=== PATIENT | male | born 1960 | race Two or more races ===

== ENCOUNTER 2018-05-15 09:16 | Inpatient (IN) | payer SELFPAY ==
[~2018-05-15] VITALS: Ht 165.1 cm; Wt 71.8 kg
[2018-05-15 09:40] LABS: BASO # 0.1 x10^3/uL (0.0-0.2); BASO % 1 % (0-3); EOS % 0 % (0-3); HEMATOCRIT 42.7 % (39.0-53.0); HEMOGLOBIN 14.3 g/dL (13.0-17.5); LYMPH # 1.4 x10^3/uL (1.0-4.8); LYMPH % 16 % (24-48); MEAN CORPUSCULAR HEMOGLOBIN 31 pg (25-35); MEAN CORPUSCULAR HGB CONC 34 g/dL (31-37); MEAN CORPUSCULAR VOLUME 91 fL (79-100); MONO # 0.4 x10^3/uL (0.0-1.1); MONO % 4 % (0-9); NEUT % 79 % (31-73); PLATELET COUNT 341 x10^3/uL (140-400); RED BLOOD COUNT 4.68 x10^6/uL (4.30-5.70); RED CELL DISTRIBUTION WIDTH 13.5 % (11.5-14.5); WHITE BLOOD COUNT 8.9 x10^3/uL (4.0-11.0)
[2018-05-15] MEDS: NITROGLYCERIN SUBLINGUAL 0.4 MG BOTTLE OF 25. SL PRN (09:41)
[2018-05-15] MEDS ORDERED: ASPIRIN CHEWABLE 81 MG TABLET. PO ONE (09:45)
[2018-05-15 09:51] LABS: CALCIUM 8.6 mg/dL (8.5-10.1); GFR 77.3; POTASSIUM 3.9 mmol/L (3.5-5.1)
--- NOTE | 2018-05-15 09:51 | PHYS DOC ---
Past Medical History Past Medical History: No Pertinent History Past Surgical History: No Surgical History Additional Information: 1/2 PACK/DAY Alcohol Use: Occasionally Additional Information: SOCIAL DRINKER Drug Use: None Adult General Chief Complaint Chief Complaint: CHEST PAIN HPI HPI Patient is a 58 year old male who presents to the ER for evaluation chest pain. Patient reports acute onset of diffuse chest pressure to anterior chest wall with radiation to bilateral upper extremity while walking to his car. Pain is constant, pressure, 8-10 out of 10, no aggravating or alleviating factors, no previous episodes. Pain is currently 8. No shortness breath, nausea, vomiting. Patient states that he has some chronic low back pain with radiation to left leg and had a friend from [place] do an injection of an unknown medication yesterday. +tobacco, Does not follow with PCP. Unsure if he has history of HTN. Review of Systems Review of Systems Constitutional: Denies fever or chills [] Eyes: Denies change in visual acuity, redness, or eye pain [] HENT: Denies nasal congestion or sore throat [] Respiratory: Denies cough or shortness of breath [] Cardiovascular: Chset pain present, no orthopnea, no palpitations. GI: Denies abdominal pain, nausea, vomiting, bloody stools or diarrhea [] : Denies dysuria or hematuria [] Musculoskeletal: Denies back pain or joint pain [] Integument: Denies rash or skin lesions [] Neurologic: Denies headache, focal weakness or sensory changes [] Endocrine: Denies polyuria or polydipsia [] All other systems were reviewed and found to be within normal limits, except as documented in this note. Current Medications Current Medications Current Medications Medications (Trade) Dose Ordered Sig/Stu Start Time Stop Time Status Last Admin Dose Admin Aspirin (Children'S Aspirin) 324 mg 1X ONCE 05/15/18 09:45 05/15/18 09:46 DC 05/15/18 09:40 324 MG Heparin Sodium (Porcine) (Heparin Sodium) 1,750 unit PRN Q6HRS PRN 05/15/18 10:45 Heparin Sodium/ Dextrose 500 ml @ 0 mls/hr CONT PRN 05/15/18 10:45 Morphine Sulfate (Morphine Sulfate) 4 mg 1X ONCE 05/15/18 10:45 05/15/18 10:46 DC 05/15/18 10:40 4 MG Multi-Ingredient Mouthwash/Gargle (Gi Cocktail) 20 ml 1X ONCE 05/15/18 11:15 05/15/18 11:16 05/15/18 11:13 20 ML Nitroglycerin (Nitrostat) 0.4 mg PRN Q5MIN PRN 05/15/18 09:45 05/15/18 09:41 0.4 MG Allergies Allergies Allergies Coded Allergies Type Severity Reaction Last Updated Verified No Known Drug Allergies 05/15/18 No Physical Exam Physical Exam Constitutional: Well developed, well nourished, no acute distress, mild distress HENT: Normocephalic, atraumatic, Eyes: PERRLA, EOMI, Neck: Normal range of motion, no tenderness, supple, no stridor. [] Cardiovascular:Heart rate regular rhythm, no murmur [] Lungs & Thorax: Bilateral breath sounds clear to auscultation [] Abdomen: Bowel sounds normal, soft, no tenderness, no masses, no pulsatile masses. [] Skin: Warm, dry, no erythema, no rash. [] Back: No tenderness, no CVA tenderness. [] Extremities: No tenderness, no cyanosis, no clubbing, ROM intact, no edema. [] Neurologic: Alert and oriented X 3, no focal deficits noted. [] Psychologic: Affect normal, judgement normal, mood normal. [] Current Patient Data Vital Signs Vital Signs Date Time Temp Pulse Resp B/P (MAP) Pulse Ox O2 Delivery O2 Flow Rate FiO2 05/15/18 11:00 62 18 146/67 (93) 99 Room Air 05/15/18 09:30 97.2 97.2 Lab Values Laboratory Tests Test 05/15/18 09:25 White Blood Count 8.9 x10^3/uL (4.0-11.0) Red Blood Count 4.68 x10^6/uL (4.30-5.70) Hemoglobin 14.3 g/dL (13.0-17.5) Hematocrit 42.7 % (39.0-53.0) Mean Corpuscular Volume 91 fL (79-100) Mean Corpuscular Hemoglobin 31 pg (25-35) Mean Corpuscular Hemoglobin Concent 34 g/dL (31-37) Red Cell Distribution Width 13.5 % (11.5-14.5) Platelet Count 341 x10^3/uL (140-400) Neutrophils (%) (Auto) 79 % (31-73) H Lymphocytes (%) (Auto) 16 % (24-48) L Monocytes (%) (Auto) 4 % (0-9) Eosinophils (%) (Auto) 0 % (0-3) Basophils (%) (Auto) 1 % (0-3) Neutrophils # (Auto) 7.0 x10^3uL (1.8-7.7) Lymphocytes # (Auto) 1.4 x10^3/uL (1.0-4.8) Monocytes # (Auto) 0.4 x10^3/uL (0.0-1.1) Eosinophils # (Auto) 0.0 x10^3/uL (0.0-0.7) Basophils # (Auto) 0.1 x10^3/uL (0.0-0.2) Sodium Level 137 mmol/L (136-145) Potassium Level 3.9 mmol/L (3.5-5.1) Chloride Level 100 mmol/L (98-107) Carbon Dioxide Level 24 mmol/L (21-32) Anion Gap 13 (6-14) Blood Urea Nitrogen 11 mg/dL (8-26) Creatinine 1.0 mg/dL (0.7-1.3) Estimated GFR (Cockcroft-Gault) 77.3 Glucose Level 173 mg/dL (70-99) H Calcium Level 8.6 mg/dL (8.5-10.1) Troponin I Quantitative 0.026 ng/mL (0.000-0.055) Laboratory Tests 05/15/18 09:25 Laboratory Tests 05/15/18 09:25 EKG EKG 0930: NSR, No acute ST segment changes. [] 1029: NSR, no acute ST segment changes, no significant change compared to previous. Radiology/Procedures Radiology/Procedures CXR: IMPRESSION: No active disease Course & Med Decision Making Course & Med Decision Making Pertinent Labs and Imaging studies reviewed. (See chart for details) []10:09: No improvement of pain with nitroglycerin. Will proceed with morphine. 10:38 Continues to have pain, cramping/pressure 01/10, will continue with morphine. Discussed with ANA Linda for Cardiology. Advised of cardiac risk factors, concerning cardiac history and non-negative troponin, but not significantly elevated, in setting of <1 hr of pain. I expressed concern that troponin will trend up. He did not feel pt warranted a stat consult in the ED. Advised anti-coagulation per my decision and will consult on the floor. Will start heparin pending serial troponin and cardiac eval on floor. Serial EKGs in ED with no acute findings. Has remained mildly HTN. 11:17: Discussed with Dr. Reese who is agreeable to admission. Pain is improved with 5 out of 10, will also try GI cocktail. Largely suspect that this is cardiac in origin. Heparin started. Patient with a CBC. Dragon Disclaimer Dragon Disclaimer This electronic medical record was generated, in whole or in part, using a voice recognition dictation system. Departure Departure Impression: Primary Impression: Chest pain due to CAD Additional Impression: Chest pain Disposition: ADMITTED INPATIENT Admitting Physician: Alee Reese Condition: GUARDED Referrals: UNKNOWN PCP NAME (PCP) Problem Qualifiers FREEDOM MONTALVO DO May 15, 2018 09:50
[2018-05-15] MEDS ORDERED: MORPHINE SULFATE 4 MG/ML VIAL. IV ONE ×2 (10:15→10:45)
--- NOTE | 2018-05-15 10:31 | RAD ---
Examination: CHEST AP ONLY History: Chest pain. Comparison/Correlation: None Findings: Portable upright frontal view of the chest was obtained. Heart size is normal and pulmonary vasculature is borderline. No infiltrate or pleural effusion. No pneumothorax. Bony structures are unremarkable. Impression: No active disease. Electronically signed by: Dwight Cuba MD (05/15/2018 10:28 AM) [id number]
[2018-05-15] MEDS ORDERED: HEPARIN for IV BOLUS 10,000 UNIT/10 ML VIAL. IV PRN (10:45)
[2018-05-15] MEDS ORDERED: HEPARIN for IV BOLUS 10,000 UNIT/10 ML VIAL. IV ONE ×2 (11:00→14:00)
[2018-05-15] MEDS ORDERED: LIDO:MAALOX 1:1 20 ML SINGLE DOSE. SWSW ONE (11:15)
--- NOTE | 2018-05-15 11:19 | PDOC2 ---
MATTIE BARLOW DAIRY DEPARTMENT MANAGER 05/15/18 1119: CARDIAC CONSULT DATE OF CONSULT Date of Consult DATE: 05/15/18 TIME: 11:07 REASON FOR CONSULT Reason for Consult: Chest pain REFERRING PHYSICIAN Referring Physician: Yady SOURCE Source: Chart review, Patient HISTORY OF PRESENT ILLNESS HISTORY OF PRESENT ILLNESS This is a pleasant 58 yo male admitted for complains of chest pain. Reports that he was walking to his car for work when he started having lower mid chest pressure which is also burning going up to his neck. He could not take a deep breath due to the pain. He felt like his jaw was cramping. And initially was complaining of bilateral shoulder discomfort which is now relieved. Reports no significant diaphoresis nor nausea/vomiting. This episode lasted for about 3 hours. 2 days ago he had the same discomfort but lasted for about 2 minutes and better after belching after water. Denies any SHOOK nor consistent exertional CP. No significant medical hx. No recent falls, injury or MVA. PAST MEDICAL HISTORY Past Medical History No pertinent history PAST SURGICAL HISTORY Past Surgical History: No pertinent history FAMILY HISTORY Family History: Coronary Artery Disease (SCD brother at 62 yo) SOCIAL HISTORY Smoke: <1 pack per day ALCOHOL: occassional Drugs: None Lives: with Family CURRENT MEDICATIONS CURRENT MEDICATIONS Current Medications Medications (Trade) Dose Ordered Sig/Stu Route PRN Reason Start Time Stop Time Status Last Admin Dose Admin Nitroglycerin (Nitrostat) 0.4 mg PRN Q5MIN PRN SL CHEST PAIN 05/15/18 09:45 05/15/18 09:41 Aspirin (Children'S Aspirin) 324 mg 1X ONCE PO 05/15/18 09:45 05/15/18 09:46 DC 05/15/18 09:40 Morphine Sulfate (Morphine Sulfate) 4 mg 1X ONCE IV 05/15/18 10:15 05/15/18 10:16 DC 05/15/18 10:21 Morphine Sulfate (Morphine Sulfate) 4 mg 1X ONCE IV 05/15/18 10:45 05/15/18 10:46 DC 05/15/18 10:40 ALLERGIES ALLERGIES: Coded Allergies: No Known Drug Allergies (Unverified , 05/15/18) ROS Review of System 14 point ROS evaluated with pertinent positives noted per HPI PHYSICAL EXAM General: Alert, Oriented X3, Cooperative, No acute distress HEENT: Atraumatic, Mucous membr. moist/pink Lungs: Clear to auscultation, Normal air movement Heart: Regular rate (SR), Normal S1, Normal S2 Abdomen: Soft, No tenderness Extremities: No cyanosis, No edema Skin: No breakdown, No significant lesion Neuro: Normal speech, Sensation intact Psych/Mental Status: Mental status NL, Mood NL MUSCULOSKELETAL: Osteoarthritic changes both hands VITALS VITALS Vital Signs Date Time Temp Pulse Resp B/P (MAP) Pulse Ox O2 Delivery O2 Flow Rate FiO2 05/15/18 11:00 62 18 146/67 (93) 99 Room Air 05/15/18 09:30 97.2 97.2 LABS Lab: Laboratory Tests Test 05/15/18 09:25 White Blood Count 8.9 x10^3/uL (4.0-11.0) Red Blood Count 4.68 x10^6/uL (4.30-5.70) Hemoglobin 14.3 g/dL (13.0-17.5) Hematocrit 42.7 % (39.0-53.0) Mean Corpuscular Volume 91 fL (79-100) Mean Corpuscular Hemoglobin 31 pg (25-35) Mean Corpuscular Hemoglobin Concent 34 g/dL (31-37) Red Cell Distribution Width 13.5 % (11.5-14.5) Platelet Count 341 x10^3/uL (140-400) Neutrophils (%) (Auto) 79 % (31-73) Lymphocytes (%) (Auto) 16 % (24-48) Monocytes (%) (Auto) 4 % (0-9) Eosinophils (%) (Auto) 0 % (0-3) Basophils (%) (Auto) 1 % (0-3) Neutrophils # (Auto) 7.0 x10^3uL (1.8-7.7) Lymphocytes # (Auto) 1.4 x10^3/uL (1.0-4.8) Monocytes # (Auto) 0.4 x10^3/uL (0.0-1.1) Eosinophils # (Auto) 0.0 x10^3/uL (0.0-0.7) Basophils # (Auto) 0.1 x10^3/uL (0.0-0.2) Sodium Level 137 mmol/L (136-145) Potassium Level 3.9 mmol/L (3.5-5.1) Chloride Level 100 mmol/L (98-107) Carbon Dioxide Level 24 mmol/L (21-32) Anion Gap 13 (6-14) Blood Urea Nitrogen 11 mg/dL (8-26) Creatinine 1.0 mg/dL (0.7-1.3) Estimated GFR (Cockcroft-Gault) 77.3 Glucose Level 173 mg/dL (70-99) Calcium Level 8.6 mg/dL (8.5-10.1) Troponin I Quantitative 0.026 ng/mL (0.000-0.055) ASSESSMENT/PLAN ASSESSMENT/PLAN 1. Chest pain: mixed features. initial trop 0.02. EKG SB without acute changes. 2. HTN: mildly elevated 3. Tobaccoism 4. Family hx of SCD: brother at 62yo Recommendations 1. TTE. Trend troponin, repeat EKG 2. GI cocktail. ASA given. 3. Smoking cessation 4. Concerning for UA prompting empiric heparin with risk factors. Trop now at 8, using the mechanism assembler phone, discussed LHC to pt risks and benefits discussed and agreeable to proceed. BETSY PEGUERO MD 05/15/18 1252: CARDIAC CONSULT ASSESSMENT/PLAN ASSESSMENT/PLAN Pt. seen and examined. Agree with above ABRASIVE GRADER note. Plan for LHC due to troponin of 8. MATTIE BARLOW APRN May 15, 2018 11:19 BETSY PEGUERO MD May 15, 2018 12:52
[2018-05-15 11:30] LABS: MAGNESIUM 1.9 mg/dL (1.8-2.4)
[2018-05-15] MEDS ORDERED: ONDANSETRON PF 4 MG/2 ML VIAL. IV PRN (11:30)
[2018-05-15] MEDS ORDERED: ACETAMINOPHEN/CODEINE 300/30MG TABLET. PO PRN (11:30)
[2018-05-15] MEDS ORDERED: MAG HYDROX/ALUMINUM HYD/SIMETH 30 ML ORAL.SUSP PO PRN (11:30)
[2018-05-15] MEDS ORDERED: cloNIDine HCL 0.1 MG TABLET PO PRN (11:30)
[2018-05-15] MEDS ORDERED: ACETAMINOPHEN 500 MG TABLET PO PRN (11:30)
[2018-05-15] MEDS ORDERED: ONDANSETRON ODT 4 MG TAB.RAPDIS. PO PRN (11:30)
[2018-05-15] MEDS ORDERED: ZOLPIDEM 5 MG TABLET. PO PRN (11:30)
[2018-05-15] MEDS: HEPARIN 25,000UTS/500ML PREMIX 500 ML IV PRN ×2 (11:33→15:23)
--- NOTE | 2018-05-15 11:52 | PDOC1 ---
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 Mild relief with morphine but no relief to nitroglycerin. Brother of heart disease at age 60s. First set troponin negative EKG serial okay but admitted for chest pain rule out. He describes the chest pain as pressure points to the mid sternal chest involving bilateral upper and lower extremities and the jaws. Denies diaphoresis SOA or presyncopal symptoms. Admitted with echocardiogram ordered by cardiology Seen at ER Past Medical History Cardiovascular: No pertinent hx Pulmonary: No pertinent hx GI: No pertinent hx Heme/Onc: No pertinent hx Hepatobiliary: No pertinent hx Psych: No pertinent hx Rheumatologic: No pertinent hx Infectious disease: No pertinent hx ENT: No pertinent hx Renal/: No pertinent hx Endocrine: No pertinent hx Dermatology: No pertinent hx Past Surgical History Past Surgical History: No pertinent history Family History Family History: Coronary Artery Disease (SCD brother at 62 yo), Heart Disease, High Cholestrol, Hypertension Social History Smoke: <1 pack per day ALCOHOL: other (binge drinker 6 beers in one sitting sometimes) Drugs: None Current Problem List Problem List Problems Medical Problems: (1) Chest pain Status: Acute (2) Chest pain due to CAD Status: Acute Current Medications Current Medications Current Medications Nitroglycerin (Nitrostat) 0.4 mg PRN Q5MIN PRN SL CHEST PAIN Last administered on 05/15/18at 09:41; Start 05/15/18 at 09:45 Aspirin (Children'S Aspirin) 324 mg 1X ONCE PO Last administered on 05/15/18at 09:40; Start 05/15/18 at 09:45; Stop 05/15/18 at 09:46; Status DC Morphine Sulfate (Morphine Sulfate) 4 mg 1X ONCE IV Last administered on at 10:21; Start 05/15/18 at 10:15; Stop 05/15/18 at 10:16; Status DC Morphine Sulfate (Morphine Sulfate) 4 mg 1X ONCE IV Last administered on at 10:40; Start 05/15/18 at 10:45; Stop 05/15/18 at 10:46; Status DC Heparin Sodium (Porcine) (Heparin Sodium) 4,000 unit 1X ONCE IV Last administered on 05/15/18at 11:30; Start 05/15/18 at 11:00; Stop 05/15/18 at 11:01 ; Status DC Heparin Sodium/ Dextrose 500 ml @ 0 mls/hr CONT PRN IV SEE I/O RECORD Last administered on 05/15/18at 11:33; Start 05/15/18 at 10:45 Heparin Sodium (Porcine) (Heparin Sodium) 1,750 unit PRN Q6HRS PRN IV FOR UFH LEVEL LESS THAN 0.2; Start 05/15/18 at 10:45 Multi-Ingredient Mouthwash/Gargle (Gi Cocktail) 20 ml 1X ONCE SWSW Last administered on 05/15/18at 11:13; Start 05/15/18 at 11:15; Stop 05/15/18 at 11:16 ; Status DC Acetaminophen (Tylenol) 500 mg PRN Q6HRS PRN PO MILD PAIN / TEMP; Start at 11:30 Acetaminophen/ Codeine Phosphate (Tylenol #3) 1 tab PRN Q6HRS PRN PO MODERATE PAIN; Start 05/15/18 at 11:30 Ondansetron HCl (Zofran) 4 mg PRN Q6HRS PRN IV NAUSEA/VOMITING; Start 05/15/18 at 11:30 Ondansetron HCl (Zofran Odt) 4 mg PRN Q6HRS PRN PO NAUSEA/VOMITING; Start 05/15 at 11:30 Zolpidem Tartrate (Ambien) 5 mg PRN QHS PRN PO INSOMNIA; Start 05/15/18 at 11: 30 Al Hydroxide/Mg Hydroxide (Mylanta Plus Xs) 30 ml PRN Q2HR PRN PO HEARTBURN / GAS; Start 05/15/18 at 11:30 Clonidine HCl (Catapres) 0.1 mg PRN Q1HR PRN PO HYPERTENSION, SEE COMMENTS; Start 05/15/18 at 11:30 Allergies Allergies: Coded Allergies: No Known Drug Allergies (Unverified , 05/15/18) ROS Review of System As per history of present illness, the rest of ROS 14 point negative Physical Exam General: Alert, Oriented X3, Cooperative, No acute distress HEENT: Atraumatic, PERRLA, EOMI Lungs: Clear to auscultation, Normal air movement Heart: S1S2, RRR, no thrills, no rubs, no gallops, no murmurs Cardiovascular: S1, S2 Abdomen: Normal bowel sounds, Soft, No tenderness, No hepatosplenomegaly, No masses Male Genitals Exam: normal genitalia, normal prostate Rectal Exam: not examined PELVIC: Nml ext genitalia Extremities: No clubbing, No cyanosis, No edema, Normal pulses, No tenderness/ swelling Skin: No rashes, No breakdown, No significant lesion Neuro: Normal gait, Normal speech, Strength at 5/5 X4 ext, Normal tone, Sensation intact, Cranial nerves 3-12 NL, Reflexes 2+ Psych/Mental Status: Mental status NL, Mood NL Vitals Vitals Vital Signs Date Time Temp Pulse Resp B/P (MAP) Pulse Ox O2 Delivery O2 Flow Rate FiO2 05/15/18 11:00 62 18 146/67 (93) 99 Room Air 05/15/18 09:30 97.2 97.2 Labs Labs Laboratory Tests Test 05/15/18 09:25 White Blood Count 8.9 x10^3/uL (4.0-11.0) Red Blood Count 4.68 x10^6/uL (4.30-5.70) Hemoglobin 14.3 g/dL (13.0-17.5) Hematocrit 42.7 % (39.0-53.0) Mean Corpuscular Volume 91 fL (79-100) Mean Corpuscular Hemoglobin 31 pg (25-35) Mean Corpuscular Hemoglobin Concent 34 g/dL (31-37) Red Cell Distribution Width 13.5 % (11.5-14.5) Platelet Count 341 x10^3/uL (140-400) Neutrophils (%) (Auto) 79 % (31-73) Lymphocytes (%) (Auto) 16 % (24-48) Monocytes (%) (Auto) 4 % (0-9) Eosinophils (%) (Auto) 0 % (0-3) Basophils (%) (Auto) 1 % (0-3) Neutrophils # (Auto) 7.0 x10^3uL (1.8-7.7) Lymphocytes # (Auto) 1.4 x10^3/uL (1.0-4.8) Monocytes # (Auto) 0.4 x10^3/uL (0.0-1.1) Eosinophils # (Auto) 0.0 x10^3/uL (0.0-0.7) Basophils # (Auto) 0.1 x10^3/uL (0.0-0.2) Sodium Level 137 mmol/L (136-145) Potassium Level 3.9 mmol/L (3.5-5.1) Chloride Level 100 mmol/L (98-107) Carbon Dioxide Level 24 mmol/L (21-32) Anion Gap 13 (6-14) Blood Urea Nitrogen 11 mg/dL (8-26) Creatinine 1.0 mg/dL (0.7-1.3) Estimated GFR (Cockcroft-Gault) 77.3 Glucose Level 173 mg/dL (70-99) Calcium Level 8.6 mg/dL (8.5-10.1) Magnesium Level 1.9 mg/dL (1.8-2.4) Troponin I Quantitative 0.026 ng/mL (0.000-0.055) Triglycerides Level 261 mg/dL (0-150) Cholesterol Level 233 mg/dL (0-200) LDL Cholesterol, Calculated 142 mg/dL (0-100) VLDL Cholesterol, Calculated 52 mg/dL (0-40) Non-HDL Cholesterol Calculated 194 mg/dL (0-129) HDL Cholesterol 39 mg/dL (40-60) Cholesterol/HDL Ratio 6.0 Laboratory Tests Test 05/15/18 09:25 White Blood Count 8.9 x10^3/uL (4.0-11.0) Red Blood Count 4.68 x10^6/uL (4.30-5.70) Hemoglobin 14.3 g/dL (13.0-17.5) Hematocrit 42.7 % (39.0-53.0) Mean Corpuscular Volume 91 fL (79-100) Mean Corpuscular Hemoglobin 31 pg (25-35) Mean Corpuscular Hemoglobin Concent 34 g/dL (31-37) Red Cell Distribution Width 13.5 % (11.5-14.5) Platelet Count 341 x10^3/uL (140-400) Neutrophils (%) (Auto) 79 % (31-73) Lymphocytes (%) (Auto) 16 % (24-48) Monocytes (%) (Auto) 4 % (0-9) Eosinophils (%) (Auto) 0 % (0-3) Basophils (%) (Auto) 1 % (0-3) Neutrophils # (Auto) 7.0 x10^3uL (1.8-7.7) Lymphocytes # (Auto) 1.4 x10^3/uL (1.0-4.8) Monocytes # (Auto) 0.4 x10^3/uL (0.0-1.1) Eosinophils # (Auto) 0.0 x10^3/uL (0.0-0.7) Basophils # (Auto) 0.1 x10^3/uL (0.0-0.2) Sodium Level 137 mmol/L (136-145) Potassium Level 3.9 mmol/L (3.5-5.1) Chloride Level 100 mmol/L (98-107) Carbon Dioxide Level 24 mmol/L (21-32) Anion Gap 13 (6-14) Blood Urea Nitrogen 11 mg/dL (8-26) Creatinine 1.0 mg/dL (0.7-1.3) Estimated GFR (Cockcroft-Gault) 77.3 Glucose Level 173 mg/dL (70-99) Calcium Level 8.6 mg/dL (8.5-10.1) Magnesium Level 1.9 mg/dL (1.8-2.4) Troponin I Quantitative 0.026 ng/mL (0.000-0.055) Triglycerides Level 261 mg/dL (0-150) Cholesterol Level 233 mg/dL (0-200) LDL Cholesterol, Calculated 142 mg/dL (0-100) VLDL Cholesterol, Calculated 52 mg/dL (0-40) Non-HDL Cholesterol Calculated 194 mg/dL (0-129) HDL Cholesterol 39 mg/dL (40-60) Cholesterol/HDL Ratio 6.0 VTE Prophylaxis Ordered VTE Prophylaxis Devices: Yes VTE Pharmacological Prophylaxi: Yes Assessment/Plan Assessment/Plan Chest pain rule out ACS Smoker half a pack a day for 25 years Binge drinker Family history CAD Plan: cycle enzymes Echocardiogram ordered by dario Li for diet Nicotine patch Watch out for alcohol withdrawals Librium when necessary etoh cessation/smoke cessation counseling one-to-one less than 30 minutes at the ER Observation status Started on heparin drip by CRUZITO LYONS MD May 15, 2018 11:52
[2018-05-15] MEDS ORDERED: chlordiazePOXIDE HCL 25 MG CAPSULE PO PRN (12:00)
[2018-05-15] MEDS ORDERED: NICOTINE 21MG PATCH. TD PRN (12:00)
[2018-05-15] MEDS ORDERED: IV NORMAL SALINE 1000ML BAG 1,000 ML IV ONE (12:15)
[2018-05-15] MEDS ORDERED: IOHEXOL 300 MG/ML 100ML VIAL. ONE (12:48)
[2018-05-15] MEDS ORDERED: LIDOCAINE 1% PF 2 ML VIAL. ONE (12:48)
--- NOTE | 2018-05-15 12:57 | EKG ---
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
--- NOTE | 2018-05-15 12:58 | EKG ---
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
[2018-05-15] MEDS ORDERED: HEPARIN for IV BOLUS 10,000 UNIT/10 ML VIAL. ONE (13:10)
[2018-05-15] MEDS ORDERED: MIDAZOLAM HCL/PF 2 MG/2 ML VIAL. ONE (13:10)
[2018-05-15] MEDS ORDERED: fentaNYL PF VIAL 100 MCG/2 ML VIAL ONE (13:10)
[2018-05-15] MEDS ORDERED: VERAPAMIL 5 MG/2 ML VIAL. ONE (13:11)
[2018-05-15] MEDS ORDERED: NITROGLYCERIN 200 MCG/2 ML SYRINGE FOR CATH/VASC LAB. ONE ×2 (13:11→15:07)
[2018-05-15] MEDS ORDERED: ADENOSINE 90 MG/30 ML VIAL. IV ONE (13:40)
[2018-05-15] MEDS ORDERED: IOHEXOL 300 MG/ML 100ML VIAL. IART ONE (14:00)
[2018-05-15] MEDS ORDERED: VERAPAMIL 5 MG/2 ML VIAL. IART ONE (14:00)
[2018-05-15] MEDS ORDERED: NITROGLYCERIN 200 MCG/2 ML SYRINGE FOR CATH/VASC LAB. ICAR ONE (14:00)
[2018-05-15] MEDS ORDERED: fentaNYL PF VIAL 100 MCG/2 ML VIAL IV ONE (14:00)
[2018-05-15] MEDS ORDERED: ADENOSINE 90 MG in IV NORMAL SALINE 50ML 90 ML IV ONE (14:00)
[2018-05-15] MEDS ORDERED: HEPARIN for IV BOLUS 10,000 UNIT/10 ML VIAL. IART ONE (14:00)
[2018-05-15] MEDS ORDERED: LIDOCAINE 1% PF 2 ML VIAL. INJ ONE (14:00)
[2018-05-15] MEDS ORDERED: NITROGLYCERIN 200 MCG/2 ML SYRINGE FOR CATH/VASC LAB. IART ONE (14:00)
[2018-05-15] MEDS ORDERED: MIDAZOLAM HCL/PF 2 MG/2 ML VIAL. IV ONE (14:00)
[2018-05-15 14:05] VITALS: BP 144/72
[2018-05-15 14:42] VITALS: BP 131/75
--- NOTE | 2018-05-15 14:57 | NUR ---
Binge drinks on the weekends. Per patient (last drink two weekends ago) Addendum: 05/15/18 at 1458 by VASYL CHING RN Amended: Links added.
--- NOTE | 2018-05-15 15:21 | CARD ---
MR#: [id number] Date of Study: 05/15/2018 Ordering Physician: MATTIE BARLOW, Referring Physician: CRUZITO PUTNAM Tech: RT Anthony (R) APPROVED REPORT Technologist: RT Anthony (R) Nurse: Clementina Jamison R.N. Procedure(s) performed: Sedation Time: 44 minutes Coronary angiography, LHC, Left ventriculogram iFR/FFR of the LM/LAD HISTORY The patient is a 57 year-old male with a history of : tobacco history() . INDICATION The indication(s) include : non-STEMI Trop of 8. [facility] Clinical Frailty Scale [facility] Clinical Frailty Scale: Managing Well Heart Failure Heart Failure: No If Yes, Newly Diagnosed: No If Yes, HF Type: Diastolic If Yes, NYHA Class: Class I CASE TECHNIQUE During this case, Fluoroscopy and low osmolar contrast were used for imaging. PROCEDURE NARRATIVE INFORMED CONSENT: After explaining the risks and benefits of the procedure and alternatives, informed consent was obtained. The patient was brought electively to the cardiac catheterization lab. A timeout was performed confi rming the patient's name, date of , procedure, and site of procedure. All necessary personnel w ere wearing the appropriate protective equipment and radiation monitor devices. (See nursing notes for medications administered). ACCESS: The right wrist was sterilely prepped and draped in the usual fashion. The right wrist was infiltrat ed with 1 mL of 2% lidocaine for subcutaneous anesthesia. A 6 German Terumo glide sheath was inserte d into the right radial artery without difficulty. CORONARY ANGIOGRAPHY: Right and left coronary angiography was performed using a 6Fr TIG 4.0 catheter. Left ventricular en d diastolic pressure was obtained with a pigtail catheter and pullback was performed after left ventr iculography. All catheter exchanges and advancements were performed over a guidewire. CLOSURE: At case completion the right radial sheath was removed and a Terumo radial band was applied with 13 m l of air. COMPLICATIONS: The patient tolerated the procedure well and there were no immediate complications. FINDINGS: HEMODYNAMICS: LVEDP 18 mm Hg No gradient on LV to aortic pullback. AO: 140/70 LEFT VENTRICULOGRAM: EF 55% Anterobasal: Normal. Anterolateral: Normal Apical: Normal Diaphragmatic: Normal Posterobasal: Mildly hypokinetic. CORONARY ANGIOGRAPHY: LM is a large caliber vessel with a distal 50% stenosis. LAD is a moderate caliber vessel with mild diffuse irregularities. D1 is a small caliber vessel with mild luminal irregularities. LCx is a moderate caliber non-dominant vessel with normal angiographic appearance. OM1 is a small to moderate caliber vessel with normal angiographic appearance. RCA is a large caliber dominant vessel with a distal 90% stenosis. RPDA is a small caliber vessel with normal angiographic appearance. INTERVENTIONAL TECHNIQUE: Heparin was used for anticoagulation. Through a 6Fr EBU 3.5 guide catheter, a 0.014'' pressure wire w as advanced to the distal LAD after appropriate normalization in the aorta. NTG was administered. iFR was measured at 0.89. Subsequently, the patient received 140mcg/kg/min of adenosine and the FFR was measured at 0.70. Final post-FFR angiography revealed no evidence of guide or wire related complicati ons. Given LM disease with 3V involvement, will consider CABG evaluation. Conclusion 1. Elevated left sided filling pressures consistent with acute diastolic heart failure. 2. Three vessel CAD with LM involvement. 3. Positive FFR of the LM coronary stenosis with a value of 0.70 Recommendations CABG consultation versus multivessel PCI. Signed by : Carroll Bailey, Electronically Approved : 05/15/2018 15:20:38
--- NOTE | 2018-05-15 16:50 | PDOC2 ---
CONSULT Date of Consult Date of Consult DATE: 05/15/18 TIME: 16:39 Reason for Consult Reason for Consult: NSTEMI Referring Physician Referring Physician: Dr Trammell Identification/Chief Complaint Chief Complaint Chest pain Source Source: Chart review, Patient History of Present Illness Reason for Visit: Patient is a 57 year old male, with a hx of smoking and a family hx of IHD, who presents with acute onset of chest pain. No EKG changes. Troponin peaked at 8. Never had symptoms before. LHC today showed 50% LM involvement with a FFR of 0.7 , a 90% distal RCA stenosis with a small RPDA and a diffuse 90% LPL stenosis. I was consulted for CABG. Past Medical History Cardiovascular: No pertinent hx Pulmonary: No pertinent hx GI: No pertinent hx Heme/Onc: No pertinent hx Hepatobiliary: No pertinent hx Psych: No pertinent hx Rheumatologic: No pertinent hx Infectious disease: No pertinent hx ENT: No pertinent hx Renal/: No pertinent hx Endocrine: No pertinent hx Dermatology: No pertinent hx Past Surgical History Past Surgical History: No pertinent history Family History Family History: Coronary Artery Disease (SCD brother at 62 yo), Heart Disease, High Cholestrol, Hypertension Social History <1 pack per day ALCOHOL: other (binge drinker 6 beers in one sitting sometimes) Drugs: None Lives: with Family Current Problem List Problem List Problems Medical Problems: (1) Chest pain Status: Acute (2) Chest pain due to CAD Status: Acute Current Medications Current Medications Current Medications Nitroglycerin (Nitrostat) 0.4 mg PRN Q5MIN PRN SL CHEST PAIN Last administered on 05/15/18at 09:41; Start 05/15/18 at 09:45 Aspirin (Children'S Aspirin) 324 mg 1X ONCE PO Last administered on 05/15/18at 09:40; Start 05/15/18 at 09:45; Stop 05/15/18 at 09:46; Status DC Morphine Sulfate (Morphine Sulfate) 4 mg 1X ONCE IV Last administered on at 10:21; Start 05/15/18 at 10:15; Stop 05/15/18 at 10:16; Status DC Morphine Sulfate (Morphine Sulfate) 4 mg 1X ONCE IV Last administered on at 10:40; Start 05/15/18 at 10:45; Stop 05/15/18 at 10:46; Status DC Heparin Sodium (Porcine) (Heparin Sodium) 4,000 unit 1X ONCE IV Last administered on 05/15/18at 11:30; Start 05/15/18 at 11:00; Stop 05/15/18 at 11:01 ; Status DC Heparin Sodium/ Dextrose 500 ml @ 0 mls/hr CONT PRN IV SEE I/O RECORD Last administered on 05/15/18at 15:23; Start 05/15/18 at 10:45 Heparin Sodium (Porcine) (Heparin Sodium) 1,750 unit PRN Q6HRS PRN IV FOR UFH LEVEL LESS THAN 0.2; Start 05/15/18 at 10:45 Multi-Ingredient Mouthwash/Gargle (Gi Cocktail) 20 ml 1X ONCE SWSW Last administered on 05/15/18at 11:13; Start 05/15/18 at 11:15; Stop 05/15/18 at 11:16 ; Status DC Acetaminophen (Tylenol) 500 mg PRN Q6HRS PRN PO MILD PAIN / TEMP; Start at 11:30 Acetaminophen/ Codeine Phosphate (Tylenol #3) 1 tab PRN Q6HRS PRN PO MODERATE PAIN; Start 05/15/18 at 11:30 Ondansetron HCl (Zofran) 4 mg PRN Q6HRS PRN IV NAUSEA/VOMITING; Start 05/15/18 at 11:30 Ondansetron HCl (Zofran Odt) 4 mg PRN Q6HRS PRN PO NAUSEA/VOMITING; Start 05/15 at 11:30 Zolpidem Tartrate (Ambien) 5 mg PRN QHS PRN PO INSOMNIA; Start 05/15/18 at 11: 30 Al Hydroxide/Mg Hydroxide (Mylanta Plus Xs) 30 ml PRN Q2HR PRN PO HEARTBURN / GAS; Start 05/15/18 at 11:30 Clonidine HCl (Catapres) 0.1 mg PRN Q1HR PRN PO HYPERTENSION, SEE COMMENTS; Start 05/15/18 at 11:30 Atorvastatin Calcium (Lipitor) 20 mg QHS PO ; Start 05/15/18 at 21:00; Stop 03/21 at 21:00; Status DC Nicotine (Nicoderm Cq 21mg) 1 patch PRN DAILY PRN TD SMOKING CESSATION; Start 05/15/18 at 12:00 Chlordiazepoxide (Librium) 25 mg PRN Q6HRS PRN PO ANXIETY / AGITATION; Start at 12:00 Atorvastatin Calcium (Lipitor) 40 mg QHS PO ; Start 05/15/18 at 21:00 Sodium Chloride 1,000 ml @ 75 mls/hr 1X ONCE IV Last administered on at 15:20; Start 05/15/18 at 12:15; Stop 05/16/18 at 01:34 Lidocaine HCl (Xylocaine-Mpf 1% 2ml Vial) 2 ml STK-MED ONCE .ROUTE ; Start 05/15 at 12:48; Stop 05/15/18 at 12:49; Status DC Iohexol (Omnipaque 300 Mg/ml) 100 ml STK-MED ONCE .ROUTE ; Start 05/15/18 at 12: 48; Stop 05/15/18 at 12:49; Status DC Heparin Sodium/ Sodium Chloride 1,000 ml @ As Directed STK-MED ONCE .ROUTE ; Start 05/15/18 at 12:48; Stop 05/15/18 at 12:49; Status DC Fentanyl Citrate (Fentanyl 2ml Vial) 100 mcg STK-MED ONCE .ROUTE ; Start at 13:10; Stop 05/15/18 at 13:11; Status DC Midazolam HCl (Versed) 2 mg STK-MED ONCE .ROUTE ; Start 05/15/18 at 13:10; Stop 05/15/18 at 13:11; Status DC Heparin Sodium (Porcine) (Heparin Sodium) 10,000 unit STK-MED ONCE .ROUTE ; Start 05/15/18 at 13:10; Stop 05/15/18 at 13:11; Status DC Verapamil HCl (Verapamil) 5 mg STK-MED ONCE .ROUTE ; Start 05/15/18 at 13:11; Stop 05/15/18 at 13:12; Status DC Nitroglycerin (Nitroglycerin) 200 mcg STK-MED ONCE .ROUTE ; Start 05/15/18 at 13 :11; Stop 05/15/18 at 13:12; Status DC Adenosine (Adenoscan) 90 mg STK-MED ONCE IV ; Start 05/15/18 at 13:40; Stop 03/21 at 13:41; Status DC Nitroglycerin (Nitroglycerin) 200 mcg 1X ONCE IART Last administered on 14:00; Start 05/15/18 at 14:00; Stop 05/15/18 at 14:01; Status DC Verapamil HCl (Verapamil) 2.5 mg 1X ONCE IART Last administered on 05/15/18 14:03; Start 05/15/18 at 14:00; Stop 05/15/18 at 14:01; Status DC Heparin Sodium (Porcine) (Heparin Sodium) 2,500 unit 1X ONCE IART Last administered on 05/15/18 14:04; Start 05/15/18 at 14:00; Stop 05/15/18 at 14:01 ; Status DC Heparin Sodium/ Sodium Chloride (HEPARIN for ARTERIAL LINE FLUSH) 1,000 unit 1X ONCE IART Last administered on 05/15/18 14:03; Start 05/15/18 at 14:00; Stop 05/15/18 at 14:01; Status DC Heparin Sodium/ Sodium Chloride (HEPARIN for ARTERIAL LINE FLUSH) 1,000 unit 1X ONCE IART Last administered on 05/15/18 14:03; Start 05/15/18 at 14:00; Stop 05/15/18 at 14:01; Status DC Midazolam HCl (Versed) 2 mg 1X ONCE IV Last administered on 05/15/18 14:02; Start 05/15/18 at 14:00; Stop 05/15/18 at 14:01; Status DC Fentanyl Citrate (Fentanyl 2ml Vial) 50 mcg 1X ONCE IV Last administered on 14:03; Start 05/15/18 at 14:00; Stop 05/15/18 at 14:01; Status DC Iohexol (Omnipaque 300 Mg/ml) 100 ml 1X ONCE IART Last administered on 14:01; Start 05/15/18 at 14:00; Stop 05/15/18 at 14:01; Status DC Heparin Sodium (Porcine) (Heparin Sodium) 4,000 unit 1X ONCE IV Last administered on 05/15/18 14:04; Start 05/15/18 at 14:00; Stop 05/15/18 at 14:01 ; Status DC Adenosine 90 mg/ Sodium Chloride 120 ml @ 200 mls/hr 1X ONCE IV Last administered on 05/15/18 14:01; Start 05/15/18 at 14:00; Stop 05/15/18 at 14:35 ; Status DC Nitroglycerin (Nitroglycerin) 200 mcg 1X ONCE ICAR Last administered on at 14:01; Start 05/15/18 at 14:00; Stop 05/15/18 at 14:01; Status DC Lidocaine HCl (Xylocaine-Mpf 1% 2ml Vial) 1 ml 1X ONCE INJ Last administered on 05/15/18at 14:03; Start 05/15/18 at 14:00; Stop 05/15/18 at 14:01; Status DC Nitroglycerin (Nitroglycerin) 200 mcg STK-MED ONCE .ROUTE ; Start 05/15/18 at 15 :07; Stop 05/15/18 at 15:08; Status DC Allergies Allergies: Coded Allergies: No Known Drug Allergies (Unverified , 05/15/18) ROS General: No: Chills, Night Sweats, Fatigue, Malaise, Appetite PSYCHOLOGICAL ROS: No: Anxiety, Behavioral Disorder, Concentration difficultie , Decreased libido, Depression, Disorientation, Hallucinations, Hostility, Irritablity, Memory difficulties, Mood Swings, Obsessive thoughts, Physical abuse, Sexual abuse, Sleep disturbances, Suicidal ideation Eyes: No Blurry vision, No Decreased vision, No Double vision, No Dry eyes, No Excessive tearing, No Eye Pain, No Itchy Eyes, No Loss of vision, No Photophobia , No Scotomata, No Uses contacts, No Uses glasses HEENT: No: Heacaches, Visual Changes, Hearing change, Nasal congestion, Nasal discharge, Oral lesions, Sinus pain, Sore Throat, Epistaxis, Sneezing, Snoring, Tinnitus, Vertigo, Vocal changes ALLERGY AND IMMUNOLOGY: No: Hives, Insect Bite Sensitivity, Itchy/Watery Eyes, Nasal Congestion, Post Nasal Drip, Seasonal Allergies Hematological and Lymphatic: No: Bleeding Problems, Blood Clots, Blood Transfusions, Brusing, Night Sweats, Pallor, Swollen Lymph Nodes ENDOCRINE: No: Breast Changes, Galactorrhea, Hair Pattern Changes, Hot Flashes , Malaise/lethargy, Mood Swings, Palpitations, Polydipsia/polyuria, Skin Changes , Temperature Intolerance, Unexpected Weight Changes Respiratory: No: Cough, Hemoptysis, Orthopnea, Pleuritic Pain, Shortness of breath, SOB with excertion, Sputum Changes, Stridor, Tachypnea, Wheezing Cardiovascular: yes Chest Pain; No Palpitations, No Orthopnea, No Paroxysmal Noc. Dyspnea, No Edema, No Lt Headedness Gastrointestinal: No Nausea, No Vomiting, No Abdominal Pain, No Diarrhea, No Constipation, No Melena, No Hematochezia Genitourinary: No Dysuria, No Frequency, No Incontinence, No Hematuria, No Retention, No Discharge, No Urgency, No Pain, No Flank Pain Musculoskeletal: No Gait Disturbance, No Joint Pain, No Joint Stiffness, No Joint Swelling, No Muscle Pain, No Muscular Weakness, No Pain In:, No Swelling In: Neurological: No Behavorial Changes, No Bowel/Bladder ControlChng, No Confusion , No Dizziness, No Gait Disturbance, No Headaches, No Impaired Coord/balance, No Memory Loss, No Numbness/Tingling, No Seizures, No Speech Problems, No Tremors, No Visual Changes, No Weakness Skin: No Dry Skin, No Eczema, No Hair Changes, No Lumps, No Mole Changes, No Mottling, No Nail Changes, No Pruritus, No Rash, No Skin Lesion Changes, No Acne Physical Exam General: Alert, Oriented X3, No acute distress HEENT: Atraumatic, PERRLA Lungs: Clear to auscultation Heart: Regular rate, Normal S1, Normal S2, No murmurs Abdomen: Soft, No tenderness Extremities: No edema Skin: No significant lesion Neuro: Normal gait, Normal speech, Strength at 5/5 X4 ext, Normal tone, Sensation intact, Cranial nerves 3-12 NL, Reflexes 2+ Psych/Mental Status: Mental status NL MUSCULOSKELETAL: No deformity Vitals VITALS Vital Signs Date Time Temp Pulse Resp B/P (MAP) Pulse Ox O2 Delivery O2 Flow Rate FiO2 05/15/18 15:36 Room Air 05/15/18 14:42 98.2 70 131/75 (93) 96 98.2 05/15/18 14:05 15 2.0 Labs Labs Laboratory Tests Test 05/15/18 09:25 05/15/18 11:25 White Blood Count 8.9 x10^3/uL (4.0-11.0) Red Blood Count 4.68 x10^6/uL (4.30-5.70) Hemoglobin 14.3 g/dL (13.0-17.5) Hematocrit 42.7 % (39.0-53.0) Mean Corpuscular Volume 91 fL (79-100) Mean Corpuscular Hemoglobin 31 pg (25-35) Mean Corpuscular Hemoglobin Concent 34 g/dL (31-37) Red Cell Distribution Width 13.5 % (11.5-14.5) Platelet Count 341 x10^3/uL (140-400) Neutrophils (%) (Auto) 79 % (31-73) Lymphocytes (%) (Auto) 16 % (24-48) Monocytes (%) (Auto) 4 % (0-9) Eosinophils (%) (Auto) 0 % (0-3) Basophils (%) (Auto) 1 % (0-3) Neutrophils # (Auto) 7.0 x10^3uL (1.8-7.7) Lymphocytes # (Auto) 1.4 x10^3/uL (1.0-4.8) Monocytes # (Auto) 0.4 x10^3/uL (0.0-1.1) Eosinophils # (Auto) 0.0 x10^3/uL (0.0-0.7) Basophils # (Auto) 0.1 x10^3/uL (0.0-0.2) Prothrombin Time 13.0 SEC (11.7-14.0) Prothromb Time International Ratio 1.0 (0.8-1.1) Activated Partial Thromboplast Time 25 SEC (24-38) Sodium Level 137 mmol/L (136-145) Potassium Level 3.9 mmol/L (3.5-5.1) Chloride Level 100 mmol/L (98-107) Carbon Dioxide Level 24 mmol/L (21-32) Anion Gap 13 (6-14) Blood Urea Nitrogen 11 mg/dL (8-26) Creatinine 1.0 mg/dL (0.7-1.3) Estimated GFR (Cockcroft-Gault) 77.3 Glucose Level 173 mg/dL (70-99) Calcium Level 8.6 mg/dL (8.5-10.1) Magnesium Level 1.9 mg/dL (1.8-2.4) Troponin I Quantitative 0.026 ng/mL (0.000-0.055) 8.264 ng/mL (0.000-0.055) Triglycerides Level 261 mg/dL (0-150) Cholesterol Level 233 mg/dL (0-200) LDL Cholesterol, Calculated 142 mg/dL (0-100) VLDL Cholesterol, Calculated 52 mg/dL (0-40) Non-HDL Cholesterol Calculated 194 mg/dL (0-129) HDL Cholesterol 39 mg/dL (40-60) Cholesterol/HDL Ratio 6.0 Laboratory Tests Test 05/15/18 09:25 05/15/18 11:25 White Blood Count 8.9 x10^3/uL (4.0-11.0) Red Blood Count 4.68 x10^6/uL (4.30-5.70) Hemoglobin 14.3 g/dL (13.0-17.5) Hematocrit 42.7 % (39.0-53.0) Mean Corpuscular Volume 91 fL (79-100) Mean Corpuscular Hemoglobin 31 pg (25-35) Mean Corpuscular Hemoglobin Concent 34 g/dL (31-37) Red Cell Distribution Width 13.5 % (11.5-14.5) Platelet Count 341 x10^3/uL (140-400) Neutrophils (%) (Auto) 79 % (31-73) Lymphocytes (%) (Auto) 16 % (24-48) Monocytes (%) (Auto) 4 % (0-9) Eosinophils (%) (Auto) 0 % (0-3) Basophils (%) (Auto) 1 % (0-3) Neutrophils # (Auto) 7.0 x10^3uL (1.8-7.7) Lymphocytes # (Auto) 1.4 x10^3/uL (1.0-4.8) Monocytes # (Auto) 0.4 x10^3/uL (0.0-1.1) Eosinophils # (Auto) 0.0 x10^3/uL (0.0-0.7) Basophils # (Auto) 0.1 x10^3/uL (0.0-0.2) Prothrombin Time 13.0 SEC (11.7-14.0) Prothromb Time International Ratio 1.0 (0.8-1.1) Activated Partial Thromboplast Time 25 SEC (24-38) Sodium Level 137 mmol/L (136-145) Potassium Level 3.9 mmol/L (3.5-5.1) Chloride Level 100 mmol/L (98-107) Carbon Dioxide Level 24 mmol/L (21-32) Anion Gap 13 (6-14) Blood Urea Nitrogen 11 mg/dL (8-26) Creatinine 1.0 mg/dL (0.7-1.3) Estimated GFR (Cockcroft-Gault) 77.3 Glucose Level 173 mg/dL (70-99) Calcium Level 8.6 mg/dL (8.5-10.1) Magnesium Level 1.9 mg/dL (1.8-2.4) Troponin I Quantitative 0.026 ng/mL (0.000-0.055) 8.264 ng/mL (0.000-0.055) Triglycerides Level 261 mg/dL (0-150) Cholesterol Level 233 mg/dL (0-200) LDL Cholesterol, Calculated 142 mg/dL (0-100) VLDL Cholesterol, Calculated 52 mg/dL (0-40) Non-HDL Cholesterol Calculated 194 mg/dL (0-129) HDL Cholesterol 39 mg/dL (40-60) Cholesterol/HDL Ratio 6.0 Images Images LEFT VENTRICULOGRAM: EF 55% Anterobasal: Normal. Anterolateral: Normal Apical: Normal Diaphragmatic: Normal Posterobasal: Mildly hypokinetic. CORONARY ANGIOGRAPHY: LM is a large caliber vessel with a distal 50% stenosis. LAD is a moderate caliber vessel with mild diffuse irregularities. D1 is a small caliber vessel with mild luminal irregularities. LCx is a moderate caliber non-dominant vessel with normal angiographic appearance. OM1 is a small to moderate caliber vessel with normal angiographic appearance. RCA is a large caliber dominant vessel with a distal 90% stenosis. RPDA is a small caliber vessel with normal angiographic appearance. . Assessment/Plan Assessment/Plan 57 year old male, with a hx of smoking and a family hx of IHD, who presents with NSTEMI. LHC today showed 50% LM involvement with a FFR of 0.7, a 90% distal RCA stenosis with a small RPDA and a diffuse 90% LPL stenosis. LV function is preserved. Overall, he's a very good surgical candidate. The LAD target is excellent. The issue is that the LPL target is small. Furthermore, the culprit lesion is the distal RCA stenosis. Given that the RCA target is a borderline, (may end up being small), he's probably better served with RCA PCI. 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 If ischemia was in anterior wall, then CABG would have made sense. Since the RPDA appears small, alf PCI benefit for the RCA is equivalent to a vein graft. NAVID ALMODOVAR MD May 15, 2018 16:50
--- NOTE | 2018-05-15 17:54 | PDOC ---
Provider Note Provider Note Noted cardiac surgery consultation. Discussed with Dr. Teixeira who will perform RCA PCI tomorrow with repeat evaluation of the LPL and if adequate caliber will proceed with stenting of the LPL as well and continue medical mgmt of the LAD. BETSY PEGUERO MD May 15, 2018 17:54
[2018-05-15 19:25] VITALS: BP 154/68
[2018-05-15] MEDS: ATORVASTATIN CALCIUM 40 MG TABLET. PO SCH (20:49)
[2018-05-15] MEDS ORDERED: ATORVASTATIN CALCIUM 20 MG TABLET PO SCH (21:00)
[2018-05-15] MEDS ORDERED: CLOPIDOGREL BISULFATE 75 MG TABLET PO ONE (21:15)
[2018-05-15 23:00] VITALS: BP 112/59
[2018-05-16] VITALS (12 sets, daily range): BP systolic 89–111; BP diastolic 49–63
--- NOTE | 2018-05-16 00:13 | NUR ---
Midnight UFH result 0.45; per Heparin protocol no change in dose--Heparin continues at 16UNITS/KG/HR (24CC/HR). Will recheck UFH at 0600. Addendum: 05/16/18 at 0135 by KWAME ALVAREZ RN Time inaccurate--reviewed results at 0130.
--- NOTE | 2018-05-16 01:00 | NUR ---
UFH STILL PENDING.
--- NOTE | 2018-05-16 01:10 | NUR ---
REPORT TO KWAME ARENAS. REPORT ON HEPARIN DRIP AND PENDING UFH, NPLO STATUS FOR CARDIAC CATH TO BE DONE 05-16-2018.
--- NOTE | 2018-05-16 06:00 | NUR ---
Heparin stopped for scheduled Cardiac cath today; UFH lab dc'd.
--- NOTE | 2018-05-16 07:20 | NUR ---
Called Dr Steele, notified Heparin was stopped at 0600 for planned Cardiac cath today but there was not previous order. Order received Ok to leave Heparin off for planned Cardiac Cath today; evaluate, restarting post cath. See order.
[2018-05-16] MEDS ORDERED: ASPIRIN CHEWABLE 81 MG TABLET. PO SCH (08:00)
[2018-05-16] MEDS: CLOPIDOGREL BISULFATE 75 MG TABLET PO SCH (08:00)
--- NOTE | 2018-05-16 09:35 | NUR ---
SS following for discharge planning. Pt is self pay pt and has no insurance. Pt is from home and currently on room air.
[2018-05-16] MEDS ORDERED: IOHEXOL 300 MG/ML 100ML VIAL. ONE (10:44)
[2018-05-16] MEDS ORDERED: LIDOCAINE 1% Multi-Dose 20 ML VIAL. ONE (10:45)
--- NOTE | 2018-05-16 10:45 | NUR ---
Pt c/o 10/10 chest pain. Nitro sublingual given x2. Rianna LOPEZ here on unit, instructed to give 2mg of Morphine. labor relations teacher called and will be here to get the pt in approx. 10 minutes.
[2018-05-16] MEDS: NITROGLYCERIN SUBLINGUAL 0.4 MG BOTTLE OF 25. SL PRN ×2 (10:46→10:52)
[2018-05-16] MEDS ORDERED: MORPHINE SULFATE 4 MG/ML VIAL. IV ONE (11:00)
[2018-05-16] MEDS ORDERED: MIDAZOLAM HCL/PF 2 MG/2 ML VIAL. IV ONE (11:00)
[2018-05-16] MEDS ORDERED: IOHEXOL 300 MG/ML 100ML VIAL. IART ONE (11:00)
[2018-05-16] MEDS ORDERED: LIDOCAINE 1% Multi-Dose 20 ML VIAL. INJ ONE (11:00)
[2018-05-16] MEDS ORDERED: fentaNYL PF VIAL 100 MCG/2 ML VIAL IV ONE (11:00)
[2018-05-16] MEDS ORDERED: CONTRAST GIVEN. MC PRN (11:00)
--- NOTE | 2018-05-16 11:00 | NUR ---
Pt to woven label designer via bed at this time.
--- NOTE | 2018-05-16 11:18 | PDOC ---
MODERATE SEDATION ASSESSMENT RISKS/ALTERNATIVES Risks/Alternatives Risks and alternatives of this type of sedation and procedure discussed with: RISK/ALTERNATIVES: Patient H & P ON CHART H & P H & P on chart and reviewed for co-morbid conditions and appropriate labs. H&P ON CHART: Yes STATUS PREG STATUS ASSESSED: N/A MEDS/ALLERGIES REVIEWED Meds/Allergies Reviewed Medications and Allergies including time and route of recently administered narcotics and sedatives. MEDS/ALLERGIES REVIEWED: Yes ASA RATING ASA RATING: II AIRWAY ASSESSMENT Airway Assessment Airway patency, oral function limitations, presence of caps, crowns, dentures, partials, and ability to extend neck assessed. AIRWAY ASSESSMENT: Yes MALLAMPATI SCORE MALLAMPATI SCORE: II PRE-SEDATION ASSESSMENT PRE-SEDATION ASSESSMENT: Yes MARTI FIGUEROA MD May 16, 2018 11:18
[2018-05-16] MEDS ORDERED: BIVALIRUDIN 250 MG VIAL. IV ONE ×2 (11:38→11:45)
[2018-05-16] MEDS ORDERED: CLOPIDOGREL BISULFATE 75 MG TABLET PO ONE (12:00)
[2018-05-16] MEDS ORDERED: IV NORMAL SALINE 1000ML BAG 1,000 ML IV SCH (12:16)
--- NOTE | 2018-05-16 12:25 | NUR ---
Pt returned from the labor relations officer via bed. 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 Right groin site closed with angioseal is dry and intact, soft, no hematoma. Pedal pulses remain 2+. Pt denies chest pain at this time.
[2018-05-16] MEDS ORDERED: ATROPINE 0.5 MG/5 ML DISP.SYRINGE. IV PRN (12:30)
[2018-05-16] MEDS ORDERED: NITROGLYCERIN SUBLINGUAL 0.4 MG BOTTLE OF 25. SL PRN (12:30)
[2018-05-16] MEDS ORDERED: LIDOCAINE 2% 100 MG/5 ML SYRINGE. IV PRN (12:30)
[2018-05-16] MEDS ORDERED: ACETAMINOPHEN 325 MG TABLET. PO PRN (12:30)
[2018-05-16] MEDS ORDERED: fentaNYL PF VIAL 100 MCG/2 ML VIAL IV PRN (12:30)
[2018-05-16] MEDS ORDERED: AMIODARONE 150 MG in IV DEXTROSE 5% 100ML 100 ML IV PRN (12:30)
[2018-05-16] MEDS ORDERED: ASPIRIN ENTERIC COATED 325 MG TABLET.DR. PO SCH (13:00)
--- NOTE | 2018-05-16 13:16 | CARD ---
MR#: [id number] Date of Study: 05/16/2018 Ordering Physician: MATTIE BARLOW, Referring Physician: CRUZITO PUTNAM Tech: Skylar Do [facility] APPROVED REPORT EXAM: Two-dimensional and M-mode echocardiogram with Doppler and color Doppler. Other Information Quality : GoodHR: 55bpm Rhythm : Bradycardia INDICATION Chest Pain 2D DIMENSIONS RVDd3.2 (2.9-3.5cm)Left Atrium(2D)3.1 (1.6-4.0cm) IVSd1.0 (0.7-1.1cm)Aortic Root(2D)3.0 (2.0-3.7cm) LVDd4.2 (3.9-5.9cm)LVOT Diameter2.0 (1.8-2.4cm) PWd1.1 (0.7-1.1cm)LVDs3.0 (2.5-4.0cm) FS (%) 28.5 %SV44.1 ml LVEF(%)55.3 (>50%) M-Mode DIMENSIONS Left Atrium(MM)3.32 (2.5-4.0cm)Aortic Root3.38 (2.2-3.7cm) Aortic Valve AoV Peak Robin.99.5cm/sAoV VTI19.7cm AO Peak GR.4.0mmHgLVOT Peak Robin.72.4cm/s AO Mean GR.2mmHgAVA (VMAX)2.19cm2 TRES (VTI)2.20cm2 Mitral Valve MV E Tkyvscqq24.8cm/sMV DECEL [id number] MV A Ucnscatc27.1cm/sE/A Ratio2.1 MV A [id number] Pulmonary Valve PV Peak Qytboccu13.1cm/s LEFT VENTRICLE The left ventricle is normal size. There is normal left ventricular wall thickness. Left ventricle sy stolic function is low normal. The Ejection Fraction is 50-55%. There is hypokinesis in the basal to mid inferoseptal wall. Transmitral Doppler flow pattern is abnormal. RIGHT VENTRICLE The right ventricle is normal size. There is normal right ventricular wall thickness. The right ventr icular systolic function is normal. ATRIA The left atrium size is normal. The right atrium size is normal. The interatrial septum is intact wit h no evidence for an atrial septal defect or patent foramen ovale as noted on 2-D or Doppler imaging. AORTIC VALVE The aortic valve is calcified but opens well. The aortic valve is trileaflet. Doppler and Color Flow revealed no significant aortic regurgitation. There is no significant aortic valvular stenosis. MITRAL VALVE The mitral valve is normal in structure and function. There is no evidence of mitral valve prolapse. There is no mitral valve stenosis. Doppler and Color-flow revealed trace to mild mitral regurgitation . TRICUSPID VALVE The tricuspid valve is normal in structure and function. Doppler and Color Flow revealed no tricuspid valve regurgitation noted. There is no tricuspid valve prolapse or vegetation. There is no tricuspid valve stenosis. PULMONIC VALVE Pulmonic valve not well visualized. GREAT VESSELS The aortic root is normal in size. The ascending aorta is normal in size. The IVC is normal in size a nd collapses >50% with inspiration. PERICARDIAL EFFUSION There is no evidence of significant pericardial effusion. Critical Notification Critical Value: No <Conclusion> The left ventricle is normal size. Left ventricle systolic function is low normal. The Ejection Fraction is 50-55%. There is hypokinesis in the basal to mid inferoseptal wall. There is no significant aortic valvular stenosis. Doppler and Color Flow revealed no significant aortic regurgitation. Doppler and Color-flow revealed trace to mild mitral regurgitation. Doppler and Color Flow revealed no tricuspid valve regurgitation noted. Signed by : Aroldo Méndez MD Electronically Approved : 05/16/2018 13:16:14
--- NOTE | 2018-05-16 14:15 | PDOC ---
PROGRESS NOTES Chief Complaint Chief Complaint CC: CP Elevated troponin, as high as 8.26 CAD Current smoker, 13 pack year history. FHx of SCD and CAD FHx of HTN FHx of HLD History of Present Illness History of Present Illness Pt is 58 y/o male who presented to hospital with CP. He was seen and examined in the ICU. Today he states his CP is less. He denies SOA. He underwent stenting procedure today. 1 stent placed in distal RCA. I discussed the pt with his RN. Vitals Vitals Vital Signs Date Time Temp Pulse Resp B/P (MAP) Pulse Ox O2 Delivery O2 Flow Rate FiO2 05/16/18 12:07 62 15 98 Nasal Cannula 2.0 05/16/18 11:00 98.3 111/56 (74) 98.3 Physical Exam General: Alert, Oriented X3, No acute distress Heart: Regular rate, Normal S1, Normal S2, No murmurs Lungs: Clear, Other (No wheezing or crackles) Abdomen: Soft, No tenderness Extremities: No edema Skin: No significant lesion Labs LABS Laboratory Tests Test 05/15/18 17:55 05/16/18 00:15 Troponin I Quantitative 95.396 ng/mL (0.000-0.055) 82.192 ng/mL (0.000-0.055) Heparin Anti-Xa Act, Unfractionated 0.45 IU/mL (0.30-0.70) Review of Systems Review of Systems Gen: denies fever, chills Heart: denies current CP, palp Lung: denies cough, SOA GI: denies abd pain, N/V Assessment and Plan Assessmemt and Plan Assessment: CC: CP Elevated troponin, as high as 8.26 CAD S/p distal RCA PCI, 1 stent on 05/16 Current smoker, 13 pack year history. FHx of SCD and CAD FHx of HTN FHx of HLD Plan: S/p distal RCA PCI, 1 stent placed 05/16 Cardiac monitoring Echo per cardiology Wound care Monitor labs PT/OT Home meds Appreciate subspecialist input Appreciate cardiology timely intervention Comment Review of Relevant I have reviewed the following items susan (where applicable) has been applied. Labs Laboratory Tests Test 05/15/18 09:25 05/15/18 11:25 05/15/18 17:55 05/16/18 00:15 White Blood Count 8.9 x10^3/uL (4.0-11.0) Red Blood Count 4.68 x10^6/uL (4.30-5.70) Hemoglobin 14.3 g/dL (13.0-17.5) Hematocrit 42.7 % (39.0-53.0) Mean Corpuscular Volume 91 fL (79-100) Mean Corpuscular Hemoglobin 31 pg (25-35) Mean Corpuscular Hemoglobin Concent 34 g/dL (31-37) Red Cell Distribution Width 13.5 % (11.5-14.5) Platelet Count 341 x10^3/uL (140-400) Neutrophils (%) (Auto) 79 % (31-73) Lymphocytes (%) (Auto) 16 % (24-48) Monocytes (%) (Auto) 4 % (0-9) Eosinophils (%) (Auto) 0 % (0-3) Basophils (%) (Auto) 1 % (0-3) Neutrophils # (Auto) 7.0 x10^3uL (1.8-7.7) Lymphocytes # (Auto) 1.4 x10^3/uL (1.0-4.8) Monocytes # (Auto) 0.4 x10^3/uL (0.0-1.1) Eosinophils # (Auto) 0.0 x10^3/uL (0.0-0.7) Basophils # (Auto) 0.1 x10^3/uL (0.0-0.2) Prothrombin Time 13.0 SEC (11.7-14.0) Prothromb Time International Ratio 1.0 (0.8-1.1) Activated Partial Thromboplast Time 25 SEC (24-38) Sodium Level 137 mmol/L (136-145) Potassium Level 3.9 mmol/L (3.5-5.1) Chloride Level 100 mmol/L (98-107) Carbon Dioxide Level 24 mmol/L (21-32) Anion Gap 13 (6-14) Blood Urea Nitrogen 11 mg/dL (8-26) Creatinine 1.0 mg/dL (0.7-1.3) Estimated GFR (Cockcroft-Gault) 77.3 Glucose Level 173 mg/dL (70-99) Calcium Level 8.6 mg/dL (8.5-10.1) Magnesium Level 1.9 mg/dL (1.8-2.4) Troponin I Quantitative 0.026 ng/mL (0.000-0.055) 8.264 ng/mL (0.000-0.055) 95.396 ng/mL (0.000-0.055) 82.192 ng/mL (0.000-0.055) Triglycerides Level 261 mg/dL (0-150) Cholesterol Level 233 mg/dL (0-200) LDL Cholesterol, Calculated 142 mg/dL (0-100) VLDL Cholesterol, Calculated 52 mg/dL (0-40) Non-HDL Cholesterol Calculated 194 mg/dL (0-129) HDL Cholesterol 39 mg/dL (40-60) Cholesterol/HDL Ratio 6.0 Heparin Anti-Xa Act, Unfractionated 0.45 IU/mL (0.30-0.70) Laboratory Tests Test 05/15/18 17:55 05/16/18 00:15 Troponin I Quantitative 95.396 ng/mL (0.000-0.055) 82.192 ng/mL (0.000-0.055) Heparin Anti-Xa Act, Unfractionated 0.45 IU/mL (0.30-0.70) Medications Current Medications Nitroglycerin (Nitrostat) 0.4 mg PRN Q5MIN PRN SL CHEST PAIN Last administered on 05/16/18at 10:52; Start 05/15/18 at 09:45; Stop 05/16/18 at 12:47; Status DC Aspirin (Children'S Aspirin) 324 mg 1X ONCE PO Last administered on 05/15/18at 09:40; Start 05/15/18 at 09:45; Stop 05/15/18 at 09:46; Status DC Morphine Sulfate (Morphine Sulfate) 4 mg 1X ONCE IV Last administered on at 10:21; Start 05/15/18 at 10:15; Stop 05/15/18 at 10:16; Status DC Morphine Sulfate (Morphine Sulfate) 4 mg 1X ONCE IV Last administered on at 10:40; Start 05/15/18 at 10:45; Stop 05/15/18 at 10:46; Status DC Heparin Sodium (Porcine) (Heparin Sodium) 4,000 unit 1X ONCE IV Last administered on 05/15/18at 11:30; Start 05/15/18 at 11:00; Stop 05/15/18 at 11:01 ; Status DC Heparin Sodium/ Dextrose 500 ml @ 0 mls/hr CONT PRN IV SEE I/O RECORD Last administered on 05/15/18at 15:23; Start 05/15/18 at 10:45 Heparin Sodium (Porcine) (Heparin Sodium) 1,750 unit PRN Q6HRS PRN IV FOR UFH LEVEL LESS THAN 0.2; Start 05/15/18 at 10:45 Multi-Ingredient Mouthwash/Gargle (Gi Cocktail) 20 ml 1X ONCE SWSW Last administered on 05/15/18at 11:13; Start 05/15/18 at 11:15; Stop 05/15/18 at 11:16 ; Status DC Acetaminophen (Tylenol) 500 mg PRN Q6HRS PRN PO MILD PAIN / TEMP; Start at 11:30; Status Cancel Acetaminophen/ Codeine Phosphate (Tylenol #3) 1 tab PRN Q6HRS PRN PO MODERATE PAIN; Start 05/15/18 at 11:30 Ondansetron HCl (Zofran) 4 mg PRN Q6HRS PRN IV NAUSEA/VOMITING; Start 05/15/18 at 11:30 Ondansetron HCl (Zofran Odt) 4 mg PRN Q6HRS PRN PO NAUSEA/VOMITING; Start 05/15 at 11:30 Zolpidem Tartrate (Ambien) 5 mg PRN QHS PRN PO INSOMNIA; Start 05/15/18 at 11: 30 Al Hydroxide/Mg Hydroxide (Mylanta Plus Xs) 30 ml PRN Q2HR PRN PO HEARTBURN / GAS Last administered on 05/15/18at 20:49; Start 05/15/18 at 11:30 Clonidine HCl (Catapres) 0.1 mg PRN Q1HR PRN PO HYPERTENSION, SEE COMMENTS; Start 05/15/18 at 11:30 Atorvastatin Calcium (Lipitor) 20 mg QHS PO ; Start 05/15/18 at 21:00; Stop 03/21 at 21:00; Status DC Nicotine (Nicoderm Cq 21mg) 1 patch PRN DAILY PRN TD SMOKING CESSATION; Start 05/15/18 at 12:00 Chlordiazepoxide (Librium) 25 mg PRN Q6HRS PRN PO ANXIETY / AGITATION; Start at 12:00 Atorvastatin Calcium (Lipitor) 40 mg QHS PO Last administered on 05/15/18at 20: 49; Start 05/15/18 at 21:00 Sodium Chloride 1,000 ml @ 75 mls/hr 1X ONCE IV Last administered on at 15:20; Start 05/15/18 at 12:15; Stop 05/16/18 at 01:34; Status DC Lidocaine HCl (Xylocaine-Mpf 1% 2ml Vial) 2 ml STK-MED ONCE .ROUTE ; Start 05/15 at 12:48; Stop 05/15/18 at 12:49; Status DC Iohexol (Omnipaque 300 Mg/ml) 100 ml STK-MED ONCE .ROUTE ; Start 05/15/18 at 12: 48; Stop 05/15/18 at 12:49; Status DC Heparin Sodium/ Sodium Chloride 1,000 ml @ As Directed STK-MED ONCE .ROUTE ; Start 05/15/18 at 12:48; Stop 05/15/18 at 12:49; Status DC Fentanyl Citrate (Fentanyl 2ml Vial) 100 mcg STK-MED ONCE .ROUTE ; Start at 13:10; Stop 05/15/18 at 13:11; Status DC Midazolam HCl (Versed) 2 mg STK-MED ONCE .ROUTE ; Start 05/15/18 at 13:10; Stop 05/15/18 at 13:11; Status DC Heparin Sodium (Porcine) (Heparin Sodium) 10,000 unit STK-MED ONCE .ROUTE ; Start 05/15/18 at 13:10; Stop 05/15/18 at 13:11; Status DC Verapamil HCl (Verapamil) 5 mg STK-MED ONCE .ROUTE ; Start 05/15/18 at 13:11; Stop 05/15/18 at 13:12; Status DC Nitroglycerin (Nitroglycerin) 200 mcg STK-MED ONCE .ROUTE ; Start 05/15/18 at 13 :11; Stop 05/15/18 at 13:12; Status DC Adenosine (Adenoscan) 90 mg STK-MED ONCE IV ; Start 05/15/18 at 13:40; Stop 03/21 at 13:41; Status DC Nitroglycerin (Nitroglycerin) 200 mcg 1X ONCE IART Last administered on 14:00; Start 05/15/18 at 14:00; Stop 05/15/18 at 14:01; Status DC Verapamil HCl (Verapamil) 2.5 mg 1X ONCE IART Last administered on 05/15/18 14:03; Start 05/15/18 at 14:00; Stop 05/15/18 at 14:01; Status DC Heparin Sodium (Porcine) (Heparin Sodium) 2,500 unit 1X ONCE IART Last administered on 05/15/18 14:04; Start 05/15/18 at 14:00; Stop 05/15/18 at 14:01 ; Status DC Heparin Sodium/ Sodium Chloride (HEPARIN for ARTERIAL LINE FLUSH) 1,000 unit 1X ONCE IART Last administered on 05/15/18 14:03; Start 05/15/18 at 14:00; Stop 05/15/18 at 14:01; Status DC Heparin Sodium/ Sodium Chloride (HEPARIN for ARTERIAL LINE FLUSH) 1,000 unit 1X ONCE IART Last administered on 05/15/18 14:03; Start 05/15/18 at 14:00; Stop 05/15/18 at 14:01; Status DC Midazolam HCl (Versed) 2 mg 1X ONCE IV Last administered on 05/15/18 14:02; Start 05/15/18 at 14:00; Stop 05/15/18 at 14:01; Status DC Fentanyl Citrate (Fentanyl 2ml Vial) 50 mcg 1X ONCE IV Last administered on 14:03; Start 05/15/18 at 14:00; Stop 05/15/18 at 14:01; Status DC Iohexol (Omnipaque 300 Mg/ml) 100 ml 1X ONCE IART Last administered on 14:01; Start 05/15/18 at 14:00; Stop 05/15/18 at 14:01; Status DC Heparin Sodium (Porcine) (Heparin Sodium) 4,000 unit 1X ONCE IV Last administered on 05/15/18 14:04; Start 05/15/18 at 14:00; Stop 05/15/18 at 14:01 ; Status DC Adenosine 90 mg/ Sodium Chloride 120 ml @ 200 mls/hr 1X ONCE IV Last administered on 2/12/19at 14:01; Start 05/15/18 at 14:00; Stop 05/15/18 at 14:35 ; Status DC Nitroglycerin (Nitroglycerin) 200 mcg 1X ONCE ICAR Last administered on at 14:01; Start 05/15/18 at 14:00; Stop 05/15/18 at 14:01; Status DC Lidocaine HCl (Xylocaine-Mpf 1% 2ml Vial) 1 ml 1X ONCE INJ Last administered on 05/15/18at 14:03; Start 05/15/18 at 14:00; Stop 05/15/18 at 14:01; Status DC Nitroglycerin (Nitroglycerin) 200 mcg STK-MED ONCE .ROUTE ; Start 05/15/18 at 15 :07; Stop 05/15/18 at 15:08; Status DC Aspirin (Children'S Aspirin) 81 mg DAILYWBKFT PO ; Start 05/16/18 at 08:00; Stop 05/16/18 at 12:23; Status DC Clopidogrel Bisulfate (Plavix) 600 mg 1X ONCE PO Last administered on at 22:11; Start 05/15/18 at 21:15; Stop 05/15/18 at 21:16; Status DC Clopidogrel Bisulfate (Plavix) 75 mg DAILYWBKFT PO ; Start 05/16/18 at 08:00 Iohexol (Omnipaque 300 Mg/ml) 100 ml STK-MED ONCE .ROUTE ; Start 05/16/18 at 10: 44; Stop 05/16/18 at 10:45; Status DC Lidocaine HCl (Lidocaine 1% 20ml Vial) 20 ml STK-MED ONCE .ROUTE ; Start at 10:45; Stop 05/16/18 at 10:46; Status DC Heparin Sodium/ Sodium Chloride 1,000 ml @ As Directed STK-MED ONCE .ROUTE ; Start 05/16/18 at 10:45; Stop 05/16/18 at 10:46; Status DC Heparin Sodium/ Sodium Chloride (HEPARIN for ARTERIAL LINE FLUSH) 1,000 unit 1X ONCE IART Last administered on 05/16/18at 11:00; Start 05/16/18 at 11:00; Stop 05/16/18 at 11:01; Status DC Heparin Sodium/ Sodium Chloride (HEPARIN for ARTERIAL LINE FLUSH) 1,000 unit 1X ONCE IART Last administered on 05/16/18at 11:00; Start 05/16/18 at 11:00; Stop 05/16/18 at 11:01; Status DC Midazolam HCl (Versed) 2 mg 1X ONCE IV Last administered on 05/16/18at 11:00; Start 05/16/18 at 11:00; Stop 05/16/18 at 11:01; Status DC Fentanyl Citrate (Fentanyl 2ml Vial) 100 mcg 1X ONCE IV Last administered on at 11:00; Start 05/16/18 at 11:00; Stop 05/16/18 at 11:01; Status DC Iohexol (Omnipaque 300 Mg/ml) 100 ml 1X ONCE IART Last administered on at 11:00; Start 05/16/18 at 11:00; Stop 05/16/18 at 11:01; Status DC Lidocaine HCl (Lidocaine 1% 20ml Vial) 20 ml 1X ONCE INJ Last administered on 05/16/18at 11:00; Start 05/16/18 at 11:00; Stop 05/16/18 at 11:01; Status DC Info (CONTRAST GIVEN -- Rx MONITORING) 1 each PRN DAILY PRN MC SEE COMMENTS; Start 05/16/18 at 11:00; Stop 05/18/18 at 10:59 Morphine Sulfate (Morphine Sulfate) 4 mg 1X ONCE IV Last administered on at 11:03; Start 05/16/18 at 11:00; Stop 05/16/18 at 11:01; Status DC Bivalirudin (Angiomax) 250 mg STK-MED ONCE IV ; Start 05/16/18 at 11:38; Stop at 11:39; Status DC Bivalirudin (Angiomax) 250 mg 1X ONCE IV Last administered on 05/16/18at 11:45 ; Start 05/16/18 at 11:45; Stop 05/16/18 at 11:47; Status DC Clopidogrel Bisulfate (Plavix) 600 mg 1X ONCE PO Last administered on at 12:00; Start 05/16/18 at 12:00; Stop 05/16/18 at 12:01; Status DC Sodium Chloride (Normal Saline Flush) 3 ml QSHIFT PRN IV AFTER MEDS AND BLOOD DRAWS; Start 05/16/18 at 12:30 Sodium Chloride 1,000 ml @ 75 mls/hr [id number] IV ; Start 05/16/18 at 12:16; Stop 05/16/18 at 18:15 Aspirin (Ecotrin) 325 mg DAILYWBKFT PO ; Start 05/16/18 at 13:00; Status Cancel Clopidogrel Bisulfate (Plavix) 75 mg DAILYWBKFT PO ; Start 05/17/18 at 08:00; Status UNV Acetaminophen (Tylenol) 650 mg PRN Q6HRS PRN PO MILD PAIN / TEMP; Start at 12:30 Fentanyl Citrate (Fentanyl 2ml Vial) 50 mcg PRN Q1HR PRN IV MODERATE OR SEVERE PAIN; Start 05/16/18 at 12:30 Nitroglycerin (Nitrostat) 0.4 mg PRN Q5MIN PRN SL CHEST PAIN; Start 05/16/18 at 12:30 Amiodarone HCl 150 mg/Dextrose 103 ml @ 600 mls/hr 1X PRN PRN IV FOR VENTRICULAR TACHYCARDIA; Start 05/16/18 at 12:30 Lidocaine HCl (Lidocaine HCl 2% Abboject) 100 mg 1X PRN PRN IV FOR VENTRICULAR TACHYCARDIA; Start 05/16/18 at 12:30 Atropine Sulfate (ATROPINE 0.5mg SYRINGE) 0.5 mg PRN 1X PRN IV BRADYCARDIA; Start 05/16/18 at 12:30 Aspirin (Ecotrin) 325 mg DAILYWBKFT PO ; Start 05/17/18 at 08:00 Vitals/I & O Vital Sign - Last 24 Hours 05/15/18 05/15/18 05/15/18 05/15/18 14:05 14:42 15:36 19:25 Temp 98.2 97.9 98.2 97.9 Pulse 66 70 68 Resp 15 18 B/P (MAP) 131/75 (93) 154/68 (96) Pulse Ox 98 96 97 O2 Delivery Nasal Cannula Room Air Room Air Room Air O2 Flow Rate 2.0 05/15/18 05/15/18 05/16/18 05/16/18 20:03 23:00 01:00 03:00 Temp 97.7 97.7 97.7 97.7 Pulse 60 54 Resp 18 16 B/P (MAP) 112/59 (76) 100/58 (72) Pulse Ox 98 97 O2 Delivery Room Air Room Air Room Air Room Air 05/16/18 05/16/18 05/16/18 05/16/18 07:00 07:30 08:00 10:46 Temp 98.0 98.0 Pulse 52 66 Resp 30 B/P (MAP) 100/63 (75) 110/59 Pulse Ox 99 O2 Delivery Room Air Room Air 05/16/18 05/16/18 05/16/18 05/16/18 10:52 11:00 11:00 11:03 Temp 98.3 98.3 Pulse 57 56 Resp 16 16 16 B/P (MAP) 107/55 111/56 (74) Pulse Ox 97 97 O2 Delivery Room Air Room Air 05/16/18 12:07 Pulse 62 Resp 15 Pulse Ox 98 O2 Delivery Nasal Cannula O2 Flow Rate 2.0 Intake and Output 05/15/18 05/15/18 05/16/18 15:00 23:00 07:00 Intake Total 12 ml 414 ml 1181 ml Balance 12 ml 414 ml 1181 ml NELLIE CUETO III DO May 16, 2018 14:15
--- NOTE | 2018-05-16 16:13 | CARD ---
MR#: [id number] Date of Study: 05/16/2018 Ordering Physician: MARTI FIGUEROA, Referring Physician: Edgar LASSITER: AYESHA ACEVEDO RTR APPROVED REPORT Procedures. Bare-metal stent placement to the right coronary artery. The patient is a 57-year-old male who presented with chest pain and elevated troponins. Cardiac dana terization yesterday showed a subtotal right coronary artery lesion as well as left main disease and relatively small vessel disease in the left circumflex. After discussions with the cardiovascular lucinda josh service and the patient a decision was made to proceed with bare metal stenting of the right cor onary artery. Risks and benefits were discussed with the patient. He agreed to proceed. After informed consent was obtained the patient was brought to the heart catheterization lab. The are a of the right femoral artery was prepared the usual manner with Betadine, sterile draping and local anesthetic. An 18-gauge needle was used to enter the right femoral artery, a wire placed and a 6 Fren ch sheath placed over wire. Secondary to elevation troponin overnight a [address] was advanced to the ascending aorta over a guidewire. It was used to engage the left system and s everal injections were obtained. These showed no significant change from the previous days angiogram. We therefore proceeded to revascularize the right coronary artery. A 6 [place] JR4 guide with side ho les was used to engage the right coronary artery. Angiomax as per protocol was administered. The lesi on was crossed with a PT choice wire. Predilatation with with a 2.5 x 12 Trek balloon with one inflat ion at 8 parth for 20 seconds. A 2.5 x 18 MultiLink mini vision stent was then deployed with one inflat ion at 15 parth for 15 seconds. Residual lesion was 0%. The guiding system and wire were removed the pa tient. Injection the sheath showed normal placement. The sheath was removed and sealed with an Angio- Seal product. The patient was moved to the holding area in stable condition. Findings. Right coronary artery with a proximal 20% lesion and a subtotal mid lesion present. <Conclusion> Right coronary artery with a proximal 20% lesion and a subtotal mid lesion. Successful bare metal stent placement to the subtotal right coronary artery lesion with a 0% residual . Signed by : Marti Figueroa MD Electronically Approved : 05/16/2018 16:13:13
[2018-05-16] MEDS: ATORVASTATIN CALCIUM 40 MG TABLET. PO SCH (20:36)
[2018-05-16] MEDS: 0.9 % SODIUM CHLORIDE 10 ML DISP.SYRIN. IV PRN (20:40)
--- NOTE | 2018-05-17 01:33 | NUR ---
Sleeping. Tylenol#3 given earlier.
[2018-05-17 02:59] VITALS: BP 99/52
[2018-05-17 06:01] LABS: BASO % 0 % (0-3); EOS # 0.1 x10^3/uL (0.0-0.7); EOS % 2 % (0-3); HEMATOCRIT 40.7 % (39.0-53.0); HEMOGLOBIN 13.3 g/dL (13.0-17.5); LYMPH # 2.4 x10^3/uL (1.0-4.8); LYMPH % 26 % (24-48); MEAN CORPUSCULAR HEMOGLOBIN 30 pg (25-35); MEAN CORPUSCULAR HGB CONC 33 g/dL (31-37); MEAN CORPUSCULAR VOLUME 91 fL (79-100); MONO # 0.7 x10^3/uL (0.0-1.1); MONO % 8 % (0-9); NEUT # 5.8 x10^3uL (1.8-7.7); NEUT % 64 % (31-73); PLATELET COUNT 264 x10^3/uL (140-400); RED BLOOD COUNT 4.49 x10^6/uL (4.30-5.70); RED CELL DISTRIBUTION WIDTH 13.7 % (11.5-14.5); WHITE BLOOD COUNT 9.1 x10^3/uL (4.0-11.0)
[2018-05-17 06:11] LABS: CALCIUM 9.2 mg/dL (8.5-10.1); CREATININE 0.8 mg/dL (0.7-1.3); GFR 100.4; POTASSIUM 4.2 mmol/L (3.5-5.1)
[2018-05-17 07:30] VITALS: BP 102/63
[2018-05-17] MEDS ORDERED: ASPIRIN ENTERIC COATED 325 MG TABLET.DR. PO SCH (08:00)
[2018-05-17] MEDS ORDERED: CLOPIDOGREL BISULFATE 75 MG TABLET PO SCH (08:00)
[2018-05-17] MEDS: CLOPIDOGREL BISULFATE 75 MG TABLET PO SCH (09:01)
--- NOTE | 2018-05-17 10:11 | PDOC ---
PROGRESS NOTES Chief Complaint Chief Complaint CC: CP Elevated troponin, as high as 8.26 CAD Current smoker, 13 pack year history. FHx of SCD and CAD FHx of HTN FHx of HLD History of Present Illness History of Present Illness Pt is 58 y/o male who presented to hospital with CP. He was seen and examined in the ICU. Today he is up out of bed walking around in his street clothes. He feels better and is ready to leave. No new complaints. I discussed the pt with his RN. Vitals Vitals Vital Signs Date Time Temp Pulse Resp B/P (MAP) Pulse Ox O2 Delivery O2 Flow Rate FiO2 05/17/18 08:00 Room Air 05/17/18 07:30 98.1 63 20 102/63 (76) 94 98.1 05/16/18 12:07 2.0 Physical Exam General: Alert, Oriented X3, No acute distress Heart: Regular rate, Normal S1, Normal S2, No murmurs Lungs: Clear, Other (No wheezing or crackles) Abdomen: Soft, No tenderness Extremities: No edema Skin: No significant lesion Labs LABS Laboratory Tests Test 05/17/18 05:15 White Blood Count 9.1 x10^3/uL (4.0-11.0) Red Blood Count 4.49 x10^6/uL (4.30-5.70) Hemoglobin 13.3 g/dL (13.0-17.5) Hematocrit 40.7 % (39.0-53.0) Mean Corpuscular Volume 91 fL (79-100) Mean Corpuscular Hemoglobin 30 pg (25-35) Mean Corpuscular Hemoglobin Concent 33 g/dL (31-37) Red Cell Distribution Width 13.7 % (11.5-14.5) Platelet Count 264 x10^3/uL (140-400) Neutrophils (%) (Auto) 64 % (31-73) Lymphocytes (%) (Auto) 26 % (24-48) Monocytes (%) (Auto) 8 % (0-9) Eosinophils (%) (Auto) 2 % (0-3) Basophils (%) (Auto) 0 % (0-3) Neutrophils # (Auto) 5.8 x10^3uL (1.8-7.7) Lymphocytes # (Auto) 2.4 x10^3/uL (1.0-4.8) Monocytes # (Auto) 0.7 x10^3/uL (0.0-1.1) Eosinophils # (Auto) 0.1 x10^3/uL (0.0-0.7) Basophils # (Auto) 0.0 x10^3/uL (0.0-0.2) Sodium Level 141 mmol/L (136-145) Potassium Level 4.2 mmol/L (3.5-5.1) Chloride Level 106 mmol/L (98-107) Carbon Dioxide Level 26 mmol/L (21-32) Anion Gap 9 (6-14) Blood Urea Nitrogen 15 mg/dL (8-26) Creatinine 0.8 mg/dL (0.7-1.3) Estimated GFR (Cockcroft-Gault) 100.4 Glucose Level 100 mg/dL (70-99) Calcium Level 9.2 mg/dL (8.5-10.1) Review of Systems Review of Systems Gen: denies fever, chills Heart: denies current CP, palp Lung: denies cough, SOA GI: denies abd pain, N/V Assessment and Plan Assessmemt and Plan Assessment: CC: CP Elevated troponin, as high as 8.26 CAD S/p distal RCA PCI, 1 stent on 05/16 Current smoker, 13 pack year history. FHx of SCD and CAD FHx of HTN FHx of HLD Plan: S/p distal RCA PCI, 1 stent placed 05/16 Cardiac monitoring Echo per cardiology Wound care Monitor labs PT/OT Home meds Appreciate subspecialist input Probable D/C today to home Comment Review of Relevant I have reviewed the following items susan (where applicable) has been applied. Labs Laboratory Tests Test 05/15/18 11:25 05/15/18 16:20 05/15/18 17:55 05/16/18 00:15 Troponin I Quantitative 8.264 ng/mL (0.000-0.055) 95.396 ng/mL (0.000-0.055) 82.192 ng/mL (0.000-0.055) Nasal Screen MRSA (PCR) Negative (Negative) Heparin Anti-Xa Act, Unfractionated 0.45 IU/mL (0.30-0.70) Test 05/17/18 05:15 White Blood Count 9.1 x10^3/uL (4.0-11.0) Red Blood Count 4.49 x10^6/uL (4.30-5.70) Hemoglobin 13.3 g/dL (13.0-17.5) Hematocrit 40.7 % (39.0-53.0) Mean Corpuscular Volume 91 fL (79-100) Mean Corpuscular Hemoglobin 30 pg (25-35) Mean Corpuscular Hemoglobin Concent 33 g/dL (31-37) Red Cell Distribution Width 13.7 % (11.5-14.5) Platelet Count 264 x10^3/uL (140-400) Neutrophils (%) (Auto) 64 % (31-73) Lymphocytes (%) (Auto) 26 % (24-48) Monocytes (%) (Auto) 8 % (0-9) Eosinophils (%) (Auto) 2 % (0-3) Basophils (%) (Auto) 0 % (0-3) Neutrophils # (Auto) 5.8 x10^3uL (1.8-7.7) Lymphocytes # (Auto) 2.4 x10^3/uL (1.0-4.8) Monocytes # (Auto) 0.7 x10^3/uL (0.0-1.1) Eosinophils # (Auto) 0.1 x10^3/uL (0.0-0.7) Basophils # (Auto) 0.0 x10^3/uL (0.0-0.2) Sodium Level 141 mmol/L (136-145) Potassium Level 4.2 mmol/L (3.5-5.1) Chloride Level 106 mmol/L (98-107) Carbon Dioxide Level 26 mmol/L (21-32) Anion Gap 9 (6-14) Blood Urea Nitrogen 15 mg/dL (8-26) Creatinine 0.8 mg/dL (0.7-1.3) Estimated GFR (Cockcroft-Gault) 100.4 Glucose Level 100 mg/dL (70-99) Calcium Level 9.2 mg/dL (8.5-10.1) Laboratory Tests Test 05/17/18 05:15 White Blood Count 9.1 x10^3/uL (4.0-11.0) Red Blood Count 4.49 x10^6/uL (4.30-5.70) Hemoglobin 13.3 g/dL (13.0-17.5) Hematocrit 40.7 % (39.0-53.0) Mean Corpuscular Volume 91 fL (79-100) Mean Corpuscular Hemoglobin 30 pg (25-35) Mean Corpuscular Hemoglobin Concent 33 g/dL (31-37) Red Cell Distribution Width 13.7 % (11.5-14.5) Platelet Count 264 x10^3/uL (140-400) Neutrophils (%) (Auto) 64 % (31-73) Lymphocytes (%) (Auto) 26 % (24-48) Monocytes (%) (Auto) 8 % (0-9) Eosinophils (%) (Auto) 2 % (0-3) Basophils (%) (Auto) 0 % (0-3) Neutrophils # (Auto) 5.8 x10^3uL (1.8-7.7) Lymphocytes # (Auto) 2.4 x10^3/uL (1.0-4.8) Monocytes # (Auto) 0.7 x10^3/uL (0.0-1.1) Eosinophils # (Auto) 0.1 x10^3/uL (0.0-0.7) Basophils # (Auto) 0.0 x10^3/uL (0.0-0.2) Sodium Level 141 mmol/L (136-145) Potassium Level 4.2 mmol/L (3.5-5.1) Chloride Level 106 mmol/L (98-107) Carbon Dioxide Level 26 mmol/L (21-32) Anion Gap 9 (6-14) Blood Urea Nitrogen 15 mg/dL (8-26) Creatinine 0.8 mg/dL (0.7-1.3) Estimated GFR (Cockcroft-Gault) 100.4 Glucose Level 100 mg/dL (70-99) Calcium Level 9.2 mg/dL (8.5-10.1) Medications Current Medications Nitroglycerin (Nitrostat) 0.4 mg PRN Q5MIN PRN SL CHEST PAIN Last administered on 05/16/18at 10:52; Start 05/15/18 at 09:45; Stop 05/16/18 at 12:47; Status DC Aspirin (Children'S Aspirin) 324 mg 1X ONCE PO Last administered on 05/15/18at 09:40; Start 05/15/18 at 09:45; Stop 05/15/18 at 09:46; Status DC Morphine Sulfate (Morphine Sulfate) 4 mg 1X ONCE IV Last administered on at 10:21; Start 05/15/18 at 10:15; Stop 05/15/18 at 10:16; Status DC Morphine Sulfate (Morphine Sulfate) 4 mg 1X ONCE IV Last administered on at 10:40; Start 05/15/18 at 10:45; Stop 05/15/18 at 10:46; Status DC Heparin Sodium (Porcine) (Heparin Sodium) 4,000 unit 1X ONCE IV Last administered on 05/15/18at 11:30; Start 05/15/18 at 11:00; Stop 05/15/18 at 11:01 ; Status DC Heparin Sodium/ Dextrose 500 ml @ 0 mls/hr CONT PRN IV SEE I/O RECORD Last administered on 05/15/18at 15:23; Start 05/15/18 at 10:45 Heparin Sodium (Porcine) (Heparin Sodium) 1,750 unit PRN Q6HRS PRN IV FOR UFH LEVEL LESS THAN 0.2; Start 05/15/18 at 10:45 Multi-Ingredient Mouthwash/Gargle (Gi Cocktail) 20 ml 1X ONCE SWSW Last administered on 05/15/18at 11:13; Start 05/15/18 at 11:15; Stop 05/15/18 at 11:16 ; Status DC Acetaminophen (Tylenol) 500 mg PRN Q6HRS PRN PO MILD PAIN / TEMP; Start at 11:30; Status Cancel Acetaminophen/ Codeine Phosphate (Tylenol #3) 1 tab PRN Q6HRS PRN PO MODERATE PAIN Last administered on 05/16/18at 20:37; Start 05/15/18 at 11:30 Ondansetron HCl (Zofran) 4 mg PRN Q6HRS PRN IV NAUSEA/VOMITING; Start 05/15/18 at 11:30 Ondansetron HCl (Zofran Odt) 4 mg PRN Q6HRS PRN PO NAUSEA/VOMITING; Start 05/15 at 11:30 Zolpidem Tartrate (Ambien) 5 mg PRN QHS PRN PO INSOMNIA; Start 05/15/18 at 11: 30 Al Hydroxide/Mg Hydroxide (Mylanta Plus Xs) 30 ml PRN Q2HR PRN PO HEARTBURN / GAS Last administered on 05/15/18at 20:49; Start 05/15/18 at 11:30 Clonidine HCl (Catapres) 0.1 mg PRN Q1HR PRN PO HYPERTENSION, SEE COMMENTS; Start 05/15/18 at 11:30 Atorvastatin Calcium (Lipitor) 20 mg QHS PO ; Start 05/15/18 at 21:00; Stop 03/21 at 21:00; Status DC Nicotine (Nicoderm Cq 21mg) 1 patch PRN DAILY PRN TD SMOKING CESSATION; Start 05/15/18 at 12:00 Chlordiazepoxide (Librium) 25 mg PRN Q6HRS PRN PO ANXIETY / AGITATION; Start at 12:00 Atorvastatin Calcium (Lipitor) 40 mg QHS PO Last administered on 05/16/18at 20: 36; Start 05/15/18 at 21:00 Sodium Chloride 1,000 ml @ 75 mls/hr 1X ONCE IV Last administered on at 15:20; Start 05/15/18 at 12:15; Stop 05/16/18 at 01:34; Status DC Lidocaine HCl (Xylocaine-Mpf 1% 2ml Vial) 2 ml STK-MED ONCE .ROUTE ; Start 05/15 at 12:48; Stop 05/15/18 at 12:49; Status DC Iohexol (Omnipaque 300 Mg/ml) 100 ml STK-MED ONCE .ROUTE ; Start 05/15/18 at 12: 48; Stop 05/15/18 at 12:49; Status DC Heparin Sodium/ Sodium Chloride 1,000 ml @ As Directed STK-MED ONCE .ROUTE ; Start 05/15/18 at 12:48; Stop 05/15/18 at 12:49; Status DC Fentanyl Citrate (Fentanyl 2ml Vial) 100 mcg STK-MED ONCE .ROUTE ; Start at 13:10; Stop 05/15/18 at 13:11; Status DC Midazolam HCl (Versed) 2 mg STK-MED ONCE .ROUTE ; Start 05/15/18 at 13:10; Stop 05/15/18 at 13:11; Status DC Heparin Sodium (Porcine) (Heparin Sodium) 10,000 unit STK-MED ONCE .ROUTE ; Start 05/15/18 at 13:10; Stop 05/15/18 at 13:11; Status DC Verapamil HCl (Verapamil) 5 mg STK-MED ONCE .ROUTE ; Start 05/15/18 at 13:11; Stop 05/15/18 at 13:12; Status DC Nitroglycerin (Nitroglycerin) 200 mcg STK-MED ONCE .ROUTE ; Start 05/15/18 at 13 :11; Stop 05/15/18 at 13:12; Status DC Adenosine (Adenoscan) 90 mg STK-MED ONCE IV ; Start 05/15/18 at 13:40; Stop 03/21 at 13:41; Status DC Nitroglycerin (Nitroglycerin) 200 mcg 1X ONCE IART Last administered on at 14:00; Start 05/15/18 at 14:00; Stop 05/15/18 at 14:01; Status DC Verapamil HCl (Verapamil) 2.5 mg 1X ONCE IART Last administered on 05/15/18at 14:03; Start 05/15/18 at 14:00; Stop 05/15/18 at 14:01; Status DC Heparin Sodium (Porcine) (Heparin Sodium) 2,500 unit 1X ONCE IART Last administered on 05/15/18at 14:04; Start 05/15/18 at 14:00; Stop 05/15/18 at 14:01 ; Status DC Heparin Sodium/ Sodium Chloride (HEPARIN for ARTERIAL LINE FLUSH) 1,000 unit 1X ONCE IART Last administered on 05/15/18at 14:03; Start 05/15/18 at 14:00; Stop 05/15/18 at 14:01; Status DC Heparin Sodium/ Sodium Chloride (HEPARIN for ARTERIAL LINE FLUSH) 1,000 unit 1X ONCE IART Last administered on 05/15/18at 14:03; Start 05/15/18 at 14:00; Stop 05/15/18 at 14:01; Status DC Midazolam HCl (Versed) 2 mg 1X ONCE IV Last administered on 05/15/18at 14:02; Start 05/15/18 at 14:00; Stop 05/15/18 at 14:01; Status DC Fentanyl Citrate (Fentanyl 2ml Vial) 50 mcg 1X ONCE IV Last administered on 03/21at 14:03; Start 05/15/18 at 14:00; Stop 05/15/18 at 14:01; Status DC Iohexol (Omnipaque 300 Mg/ml) 100 ml 1X ONCE IART Last administered on at 14:01; Start 05/15/18 at 14:00; Stop 05/15/18 at 14:01; Status DC Heparin Sodium (Porcine) (Heparin Sodium) 4,000 unit 1X ONCE IV Last administered on 05/15/18at 14:04; Start 05/15/18 at 14:00; Stop 05/15/18 at 14:01 ; Status DC Adenosine 90 mg/ Sodium Chloride 120 ml @ 200 mls/hr 1X ONCE IV Last administered on 05/15/18at 14:01; Start 05/15/18 at 14:00; Stop 05/15/18 at 14:35 ; Status DC Nitroglycerin (Nitroglycerin) 200 mcg 1X ONCE ICAR Last administered on at 14:01; Start 05/15/18 at 14:00; Stop 05/15/18 at 14:01; Status DC Lidocaine HCl (Xylocaine-Mpf 1% 2ml Vial) 1 ml 1X ONCE INJ Last administered on 05/15/18at 14:03; Start 05/15/18 at 14:00; Stop 05/15/18 at 14:01; Status DC Nitroglycerin (Nitroglycerin) 200 mcg STK-MED ONCE .ROUTE ; Start 05/15/18 at 15 :07; Stop 05/15/18 at 15:08; Status DC Aspirin (Children'S Aspirin) 81 mg DAILYWBKFT PO ; Start 05/16/18 at 08:00; Stop 05/16/18 at 12:23; Status DC Clopidogrel Bisulfate (Plavix) 600 mg 1X ONCE PO Last administered on at 22:11; Start 05/15/18 at 21:15; Stop 05/15/18 at 21:16; Status DC Clopidogrel Bisulfate (Plavix) 75 mg DAILYWBKFT PO Last administered on at 09:01; Start 05/16/18 at 08:00 Iohexol (Omnipaque 300 Mg/ml) 100 ml STK-MED ONCE .ROUTE ; Start 05/16/18 at 10: 44; Stop 05/16/18 at 10:45; Status DC Lidocaine HCl (Lidocaine 1% 20ml Vial) 20 ml STK-MED ONCE .ROUTE ; Start at 10:45; Stop 05/16/18 at 10:46; Status DC Heparin Sodium/ Sodium Chloride 1,000 ml @ As Directed STK-MED ONCE .ROUTE ; Start 05/16/18 at 10:45; Stop 05/16/18 at 10:46; Status DC Heparin Sodium/ Sodium Chloride (HEPARIN for ARTERIAL LINE FLUSH) 1,000 unit 1X ONCE IART Last administered on 05/16/18at 11:00; Start 05/16/18 at 11:00; Stop 05/16/18 at 11:01; Status DC Heparin Sodium/ Sodium Chloride (HEPARIN for ARTERIAL LINE FLUSH) 1,000 unit 1X ONCE IART Last administered on 05/16/18at 11:00; Start 05/16/18 at 11:00; Stop 05/16/18 at 11:01; Status DC Midazolam HCl (Versed) 2 mg 1X ONCE IV Last administered on 05/16/18at 11:00; Start 05/16/18 at 11:00; Stop 05/16/18 at 11:01; Status DC Fentanyl Citrate (Fentanyl 2ml Vial) 100 mcg 1X ONCE IV Last administered on at 11:00; Start 05/16/18 at 11:00; Stop 05/16/18 at 11:01; Status DC Iohexol (Omnipaque 300 Mg/ml) 100 ml 1X ONCE IART Last administered on at 11:00; Start 05/16/18 at 11:00; Stop 05/16/18 at 11:01; Status DC Lidocaine HCl (Lidocaine 1% 20ml Vial) 20 ml 1X ONCE INJ Last administered on 05/16/18at 11:00; Start 05/16/18 at 11:00; Stop 05/16/18 at 11:01; Status DC Info (CONTRAST GIVEN -- Rx MONITORING) 1 each PRN DAILY PRN MC SEE COMMENTS; Start 05/16/18 at 11:00; Stop 05/18/18 at 10:59 Morphine Sulfate (Morphine Sulfate) 4 mg 1X ONCE IV Last administered on at 11:03; Start 05/16/18 at 11:00; Stop 05/16/18 at 11:01; Status DC Bivalirudin (Angiomax) 250 mg STK-MED ONCE IV ; Start 05/16/18 at 11:38; Stop at 11:39; Status DC Bivalirudin (Angiomax) 250 mg 1X ONCE IV Last administered on 05/16/18at 11:45 ; Start 05/16/18 at 11:45; Stop 05/16/18 at 11:47; Status DC Clopidogrel Bisulfate (Plavix) 600 mg 1X ONCE PO Last administered on at 12:00; Start 05/16/18 at 12:00; Stop 05/16/18 at 12:01; Status DC Sodium Chloride (Normal Saline Flush) 3 ml QSHIFT PRN IV AFTER MEDS AND BLOOD DRAWS Last administered on 05/16/18at 20:40; Start 05/16/18 at 12:30 Sodium Chloride 1,000 ml @ 75 mls/hr [id number] IV ; Start 05/16/18 at 12:16; Stop 05/16/18 at 18:15; Status DC Aspirin (Ecotrin) 325 mg DAILYWBKFT PO ; Start 05/16/18 at 13:00; Status Cancel Clopidogrel Bisulfate (Plavix) 75 mg DAILYWBKFT PO ; Start 05/17/18 at 08:00; Status UNV Acetaminophen (Tylenol) 650 mg PRN Q6HRS PRN PO MILD PAIN / TEMP; Start at 12:30 Fentanyl Citrate (Fentanyl 2ml Vial) 50 mcg PRN Q1HR PRN IV MODERATE OR SEVERE PAIN; Start 05/16/18 at 12:30 Nitroglycerin (Nitrostat) 0.4 mg PRN Q5MIN PRN SL CHEST PAIN; Start 05/16/18 at 12:30 Amiodarone HCl 150 mg/Dextrose 103 ml @ 600 mls/hr 1X PRN PRN IV FOR VENTRICULAR TACHYCARDIA; Start 05/16/18 at 12:30 Lidocaine HCl (Lidocaine HCl 2% Abboject) 100 mg 1X PRN PRN IV FOR VENTRICULAR TACHYCARDIA; Start 05/16/18 at 12:30 Atropine Sulfate (ATROPINE 0.5mg SYRINGE) 0.5 mg PRN 1X PRN IV BRADYCARDIA; Start 05/16/18 at 12:30 Aspirin (Ecotrin) 325 mg DAILYWBKFT PO Last administered on 05/17/18at 09:01; Start 05/17/18 at 08:00 Vitals/I & O Vital Sign - Last 24 Hours 05/16/18 05/16/18 05/16/18 05/16/18 10:46 10:52 11:00 11:00 Temp 98.3 98.3 Pulse 66 57 56 Resp 16 16 B/P (MAP) 110/59 107/55 111/56 (74) Pulse Ox 97 O2 Delivery Room Air 05/16/18 05/16/18 05/16/18 05/16/18 11:03 12:07 12:30 12:45 Pulse 62 60 54 Resp 16 15 15 20 B/P (MAP) 91/51 (64) 96/54 (68) Pulse Ox 97 98 98 98 O2 Delivery Room Air Nasal Cannula Room Air Room Air O2 Flow Rate 2.0 05/16/18 05/16/18 05/16/18 05/16/18 13:00 13:15 13:45 14:15 Pulse 58 52 56 62 Resp 18 17 18 17 B/P (MAP) 93/53 (66) 92/54 (67) 89/51 (64) 95/53 (67) Pulse Ox 99 99 99 99 O2 Delivery Room Air Room Air Room Air Room Air 05/16/18 05/16/18 05/16/18 05/16/18 20:00 20:00 20:37 21:52 Temp 98.2 98.2 Pulse 63 Resp 23 21 16 B/P (MAP) 104/52 (69) Pulse Ox 98 O2 Delivery Room Air Room Air Room Air Room Air 05/16/18 05/17/18 05/17/18 05/17/18 23:00 02:59 07:30 08:00 Temp 98.4 98.1 98.4 98.1 Pulse 66 55 63 Resp 24 24 20 B/P (MAP) 95/49 (64) 99/52 (68) 102/63 (76) Pulse Ox 95 94 O2 Delivery Room Air Room Air Room Air Intake and Output 05/16/18 05/16/18 05/17/18 15:00 23:00 07:00 Intake Total 480 ml 1410 ml Output Total 1000 ml 500 ml Balance 480 ml 410 ml -500 ml CASTLE,NIAL K III DO May 17, 2018 10:11
[2018-05-17 12:00] VITALS: BP 114/64
--- NOTE | 2018-05-17 12:24 | DS ---
DATE OF DISCHARGE: 05/17/2018 ADMISSION DIAGNOSIS: Chest pain. DISCHARGE DIAGNOSIS: Status post cardiac catheterization with stent to the right coronary artery. Status post acute myocardial infarction. HOSPITAL COURSE: The patient is a pleasant 57-year-old male who presented with chest pain. He was admitted to room 109 in the ICU. His troponin maxed at 95.396. He was taken to the analyst microbiology lab twice. He did end up getting a stent to the RCA. Today, when I saw him, examined him in the ICU, he looks great. He is up in the chair, smiling, walking around. His heart tones were normal. His lungs were clear. We plan to discharge with close outpatient followup. DISPOSITION: Home. ACTIVITY: As tolerated. DIET: Low sodium. MEDICATIONS: I wrote an order in the chart to have Cardiology address which medications they would like him on. TOTAL TIME: 32 minutes. NELLIE CUETO DO DR: BRIDGETT/jordan JOB#: [id number] / [id number]
--- NOTE | 2018-05-17 13:06 | PDOC ---
CARDIO Progress Notes Date and Time Date of Service 05/17/2018 Time of Evaluation 0920 Subjective Subjective: No Chest Pain, No shortness of breath, No Palpitations Vitals Vitals Vital Signs Date Time Temp Pulse Resp B/P (MAP) Pulse Ox O2 Delivery O2 Flow Rate FiO2 05/17/18 08:00 Room Air 05/17/18 07:30 98.1 63 20 102/63 (76) 94 98.1 05/16/18 12:07 2.0 Weight Weight [ ] Input and Output Intake and Output Intake and Output 05/17/18 07:00 Intake Total 1890 ml Output Total 1500 ml Balance 390 ml Intake Oral 1890 ml Output Urine Total 1500 ml Stool Total 0 ml # Voids 1 Laboratory Labs Laboratory Tests Test 05/17/18 05:15 White Blood Count 9.1 x10^3/uL (4.0-11.0) Red Blood Count 4.49 x10^6/uL (4.30-5.70) Hemoglobin 13.3 g/dL (13.0-17.5) Hematocrit 40.7 % (39.0-53.0) Mean Corpuscular Volume 91 fL (79-100) Mean Corpuscular Hemoglobin 30 pg (25-35) Mean Corpuscular Hemoglobin Concent 33 g/dL (31-37) Red Cell Distribution Width 13.7 % (11.5-14.5) Platelet Count 264 x10^3/uL (140-400) Neutrophils (%) (Auto) 64 % (31-73) Lymphocytes (%) (Auto) 26 % (24-48) Monocytes (%) (Auto) 8 % (0-9) Eosinophils (%) (Auto) 2 % (0-3) Basophils (%) (Auto) 0 % (0-3) Neutrophils # (Auto) 5.8 x10^3uL (1.8-7.7) Lymphocytes # (Auto) 2.4 x10^3/uL (1.0-4.8) Monocytes # (Auto) 0.7 x10^3/uL (0.0-1.1) Eosinophils # (Auto) 0.1 x10^3/uL (0.0-0.7) Basophils # (Auto) 0.0 x10^3/uL (0.0-0.2) Sodium Level 141 mmol/L (136-145) Potassium Level 4.2 mmol/L (3.5-5.1) Chloride Level 106 mmol/L (98-107) Carbon Dioxide Level 26 mmol/L (21-32) Anion Gap 9 (6-14) Blood Urea Nitrogen 15 mg/dL (8-26) Creatinine 0.8 mg/dL (0.7-1.3) Estimated GFR (Cockcroft-Gault) 100.4 Glucose Level 100 mg/dL (70-99) Calcium Level 9.2 mg/dL (8.5-10.1) Physical Exam HEENT: Neck Supple W Full Motion Chest: Symmetric LUNGS: Clear to Auscultation Heart: S1S2, RRR (SR no ectopies) Abdomen: Soft N/T Extremities: No Edema, No Calf Tenderness Neurology: alert, oriented, follow commands Other Exams right groin arteriotomy site intact, no swelling, erythema, slight tenderness otherwise no notable hematoma. Neurovascular status to bilateral LE intact. Assessment Assessment 1. NSTEMI: S/P PCI/BMS to RCA culprit vessel. EF 50-55% 2. HTN: has been marginal post cath SBP 90-100 with episodes of SB in the 40s otherwise maintaining in the 60-70 at rest 3. Tobaccoism 4. Family hx of SCD: brother at 62yo Recommendations 1. fulldose ASA and plavix. Lipitor. Cardiac rehab 2. Limited financial constraints. 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 3. Smoking cessation 4. No ACEi and BB for now due to issues as such in #2. MATTIE BARLOW APRN May 17, 2018 13:06
[2018-05-17] MEDS ORDERED: ATOR40TA PO (13:25)
[2018-05-17] MEDS ORDERED: CLOP75TA57 PO (13:27)
[2018-05-17] MEDS ORDERED: ASPI325T8 PO (13:31)
[2018-05-17 15:00] VITALS: BP 112/63
== END 2018-05-17 15:30 | disposition home or self-care (01) | DRG 248 ==
LOC: ER 09:16 → EDBD 11:19 → ED HOLD 11:19 → 1 WEST ICU 12:54
PROVIDERS: ADMIT Internal Medicine; ATTEND Internal Medicine
PROC: 4A023N7 Measurement of Cardiac Sampling and Pressure, Left Heart, Percutaneous Approach (ICD-10-PCS; 2018-05-15)
PROC: B2151ZZ Fluoroscopy of Left Heart using Low Osmolar Contrast (ICD-10-PCS; 2018-05-15)
PROC: B2111ZZ Fluoroscopy of Multiple Coronary Arteries using Low Osmolar Contrast (ICD-10-PCS; 2018-05-15)
PROC: 4A033BC Measurement of Arterial Pressure, Coronary, Percutaneous Approach (ICD-10-PCS; 2018-05-15)
PROC: 02703DZ Dilation of Coronary Artery, One Artery with Intraluminal Device, Percutaneous Approach (ICD-10-PCS; principal; 2018-05-16)
DX: I21.4 Non-ST elevation (NSTEMI) myocardial infarction (principal); I50.31 Acute diastolic (congestive) heart failure; F17.210 Nicotine dependence, cigarettes, uncomplicated; G89.29 Other chronic pain; I11.0 Hypertensive heart disease with heart failure; I25.10 Atherosclerotic heart disease of native coronary artery without angina pectoris; M54.5 Low back pain; I25.2 Old myocardial infarction; Z82.41 Family history of sudden cardiac death; Z82.49 Family history of ischemic heart disease and other diseases of the circulatory system; Z95.5 Presence of coronary angioplasty implant and graft; Z95.1 Presence of aortocoronary bypass graft; Z71.6 Tobacco abuse counseling; Z79.899 Other long term (current) drug therapy
CPT/HCPCS: 36415; 71045; 80048; 80061; 83735; 84484; 85025; 85347; 85520; 85610; 85730; 87641; 92928; 93005; 93306; 93454; 93458; 93571; 96374; 96375; 96376; 99152; 99153; 99406; C1725; C1760; C1769; C1876; C1887; C1892; G0269; J0153; J0583; J1644; J2250; J2270; J3010; J3490; J7030; Q9967; 99285-25; C1771; G0378